=== PATIENT | male | born 1960 | race Caucasian/White ===

== ENCOUNTER 2023-10-05 10:42 | Observation (INO) | payer OTHER, SELFPAY ==
[2023-10-05] VITALS (12 sets, daily range): BP systolic 141–189; BP diastolic 83–98; PULSE 57–74; RESP 11–18; TEMP 36.3–36.8; O2SAT 96–99; BMI 37.1; BMI 35.4
--- NOTE | 2023-10-05 10:48 | CT_ITS ---
STUDY: CTA HEAD AND NECK WITH CONTRAST REASON FOR EXAM: Male, 63 years old. Neuro deficit, acute, stroke suspected RADIATION DOSAGE (If Supplied By Facility): CTDIvol = ( 20.21 ) mGy, DLP = ( 750.31 ) mGycm TECHNIQUE: CT angiography was performed with a multi-detector CT scanner. Data acquisition was obtained from the skull base through the vertex following intravenous administration of IV 100mL [id number]-[id number]. MIP images were reconstructed from the axial data set. Post-processing of the angiographic images was performed, with multiplanar reformation and 3D reconstruction. Individualized dose optimization techniques were used for this CT. COMPARISON: No relevant priors. FINDINGS: Normal bilateral petrous carotid arteries. There is calcified plaque formation of the right cavernous carotid artery, with a moderate stenosis (50-75%). There is calcified plaque formation of the left cavernous carotid artery, with a mild stenosis (less than 50%). Normal right A1 segments of the anterior cerebral artery. Normal left A1 segments of the anterior cerebral artery. Normal intact anterior communicating artery (ACOM). Normal bilateral A2 segments of the anterior cerebral arteries. Normal right M1 and M2 segments of the middle cerebral arteries, with a normal M1 bifurcation. Normal left M1 and M2 segments of the middle cerebral arteries, with a normal M1 bifurcation. Normal right posterior communicating artery (PCOM). Normal left posterior communicating artery (PCOM). Normal bilateral vertebral arteries. Normal basilar artery with a normal basilar bifurcation. The visualized bilateral superior cerebellar (SCA) arteries are normal. Normal bilateral P1, P2 and visualized P3 segments of the posterior cerebral arteries. There is no demonstrated aneurysm of the [place]. There is no demonstrated abnormality of the visualized brain. AORTIC ARCH: Normal visualized aortic arch. Normal origins of the brachiocephalic, left common carotid, and left subclavian arteries. RIGHT CAROTID ARTERIES: Normal right common carotid artery (CCA). Normal right common carotid bulb. There is severe atherosclerotic plaque formation of the origin of the right internal carotid artery with a near complete occlusion. Normal visualized cervical portion of the right internal carotid artery. Normal origin of the right external carotid artery (ECA). LEFT CAROTID ARTERIES: Normal left common carotid artery (CCA). Normal left common carotid bulb. There is extensive atherosclerotic plaque formation of the origin of the left internal carotid artery with an estimated stenosis of greater than 70%. Normal visualized cervical portion of the left internal carotid artery. Normal origin of the left external carotid artery (ECA). VERTEBRAL ARTERIES: Normal bilateral vertebral arteries. CT/STROKE CTA Head AND Neck W/Con IMPRESSION: Normal CTA Head and neck with contrast. N.B. : The above Results were Read Back by Eduin Mota MD to Dr Cas DO, and understanding confirmed on 10/05/2023 11:13:13 (ET). Electronically Signed: Eduin Mota MD at 11:14 EST ,
--- NOTE | 2023-10-05 10:48 | RAD_ITS ---
STUDY: X-RAY CHEST REASON FOR EXAM: Male, 63 years old. Neuro deficit, acute, stroke suspected TECHNIQUE: Single AP portable view of the chest. COMPARISON: None. FINDINGS: EKG electrodes are seen. The lungs are clear and expanded. There is no demonstrated pleural abnormality. Normal size heart. Normal mediastinum and albert. Normal visualized pulmonary arteries. Normal visualized aortic arch and descending thoracic aorta. There are degenerative changes of the visualized thoracic spine. Normal visualized ribs, clavicles, and shoulders. There is no demonstrated abnormality of the visualized soft tissue structures of the upper abdomen. RAD/Chest 1 View IMPRESSION: Normal x-ray examination of the chest. Electronically Signed: Eduin Mota MD at 11:59 EST ,
--- NOTE | 2023-10-05 10:48 | CT_ITS ---
STUDY: CT HEAD STROKE PROTOCOL W/O CONTRAST INJECTION REASON FOR EXAM: Male, 63 years old. Neuro deficit, acute, stroke suspected RADIATION DOSAGE (If Supplied By Facility): CTDIvol = ( 44.99 ) mGy, DLP = ( 829.85 ) mGycm TECHNIQUE: Transaxial CT imaging of the brain was performed without administration of intravenous contrast material. Individualized dose optimization techniques were used for this CT. COMPARISON: No relevant priors. FINDINGS: Normal soft tissue structures. Normal calvarium. Normal size ventricles and extra-axial spaces for the patient''s age. Normal white matter tracts of the cerebral hemispheres. Normal basal ganglia and thalami. Normal brainstem. Normal cerebellum. There is no intracranial hemorrhage. There are no findings of an acute ischemic infarction. Calcification of the cavernous portions of the internal carotid arteries bilaterally. Normal visualized paranasal sinuses. ASPECT score: 10 CT/STROKE Brain/Head without Cont IMPRESSION: Normal unenhanced CT scan of the brain. N.B. : The above Results were Read Back by Eduin Mota MD to Dr Cas DO, and understanding confirmed on 10/05/2023 11:06:32 (ET). Electronically Signed: Eduin Mota MD at 11:08 EST ,
--- NOTE | 2023-10-05 10:48 | EKG12_ITS ---
Test Reason : NEURO Blood Pressure : / mmHG Vent. Rate : 067 BPM Atrial Rate : 067 BPM P-R Int : 160 ms QRS Dur : 074 ms QT Int : 410 ms P-R-T Axes : 038 -14 005 degrees QTc Int : 433 ms Normal sinus rhythm Minimal voltage criteria for LVH, may be normal variant ( R in aVL ) Borderline ECG Confirmed by RAZA VALDES, MADELYN ([id number]), news copy editor BITA SWAN ([id number]) on 10/06/2023 9:41:57 AM Referred By: Confirmed By:MADELYN PERSON MD
--- NOTE | 2023-10-05 10:49 | EDS_ITS ---
HPI History of Present Illness Chief Complaint: Stroke Alert Detail of Chief Complaint: Patient presents to the emergency department with concern for stroke Informant: patient Narrative Narrative: Patient presents to the emergency department stating that this morning he woke up he could not use his left arm. Patient also had a line in his vision with his left eye. That line could be seen even when he closes eyes. Currently that his vision symptoms have resolved. He is now able to move his arm and the numbness and tingling has improved but still feels weak and still some has some subtle numbness and tingling. Denies difficulty with speech. Denies difficulty with weakness of his legs. Patient tells me he had a severe headache 2 weeks ago that caused him to miss 2 days of work and then headaches then resolved. Currently has just a mild headache. PFSH PFSH Medical History no medical history Allergy/AdvReac Type Severity Reaction Status Date / Time No Known Allergies Allergy Verified 10/05/23 10:50 Surgical History no surgical history Social History Smoking Status: Current every day smoker tobacco type: cigarettes ROS ROS ED Review of Systems ROS Unobtainable: other Constitutional Constitutional ED: Reports lethargy; Denies chills, fever(s), sweats or weight loss Eyes Eyes: Denies blurry vision, change in vision or diplopia ENT ENT ED: Denies rhinorrhea or sore throat Cardiovascular Cardiovascular: Reports chest pain and racing heartbeat; Denies orthopnea Respiratory/Chest Respiratory/Chest: Denies cough, dyspnea, dyspnea on exertion, orthopnea or sputum Gastrointestinal Gastrointestinal: Denies abdominal pain, diarrhea, nausea or vomiting Genitourinary Genitourinary ED: Denies dysuria, hematuria or urinary frequency Musculoskeletal Musculoskeletal: Denies arthralgias, back pain, myalgias or neck pain Integumentary Denies abscess, Abrasions or rash Neurologic Neurologic: Reports headache(s), paresthesias and weakness Psychiatric Psychiatric: Denies anxiety, depression or suicidal thoughts Endocrine Endocrinology: Denies polydipsia, polyphagia or polyuria Hematologic/Lymphatic Hematologic/Lymphatic: Denies easy bleeding, easy bruising or lymphadenopathy Allergic/Immunologic Allergic/Immunologic ED: Denies mouth swelling, tongue swelling or urticaria EXAM Physical Exam Const Vital Signs: 10/05/23 10:46 10/05/23 10:48 Pulse Rate 73 74 Respiratory Rate 16 18 Blood Pressure 189/90 H 189/90 H Blood Pressure Mean 123 123 Pulse Ox 97 98 Oxygen Delivery Method Room Air Room Air Positive well nourished and well developed General Appearance ED: well developed and NAD HEENT Reports TM's clear and moist mucous membranes normocephalic and atraumatic; Negative for trauma or tenderness Tympanic Membrane ED: Yes TM's clear Eyes PERRL and EOMs intact bilaterally General Eye ED: Negative for pale conjunctiva or scleral icterus Neck no lymphadenopathy, supple and no JVD General: Negative for tenderness Chest Wall inspection of chest normal and palpation of chest normal Chest: Negative for tenderness Resp normal respiratory effort and clear to auscultation bilaterally Effort and Inspection: Negative for respiratory distress or pain with movement Auscultation: Negative for rhonchi, wheezes or diminished lung sounds Cardio regular rate, regular rhythm, S1 normal heart sound, S2 normal heart sound and no murmurs Peripheral Pulses: pulses 2+ throughout GI normal to inspection, nondistended, normoactive bowel sounds, soft to palpation, non-tender, non-distended and no masses Back/Spine no CVA tenderness and no thoracic nor lumbar tenderness Extremity normal to inspection General Extremety ED: Negative for edema General Extremity: Negative for edema Neuro oriented x3, CN's II-XII intact bilaterally, no sensory deficits noted and gait normal Neuro Narrative: Patient with some subtle weakness of the left arm on exam with decree sensation to the left arm compared to the right for an NIH stroke scale of 2. No facial droop. Sensorium / Orientation: awake, alert, oriented to person, oriented to place and oriented to time Motor Exam: strength 5/5 throughout and strength abnormal Psych mental status grossly normal Skin no rashes or lesions noted and no wounds MDM MDM MDM Narrative Medical decision making narrative: Patient presents with concern for stroke. Last known well was last evening at 9 PM and patient woke up with symptoms this morning around 5 AM. Patient will not be a thrombolytic candidate. Stroke team was called on arrival to expedite diagnostics and treatment. Will obtain CT of the brain as well as CTA head and neck to rule out large vessel occlusion versus intracranial hemorrhage. EKG obtained on arrival shows sinus rhythm with a rate of 67 bpm with minimal criteria for LVH. Patient had a CBC with differential that showed a white count 7.4 with hemoglobin 18 and platelet count of 254. Chemistries unremarkable. Glucose was 101. CT scan of the brain without contrast was unremarkable. CTA of head and neck obtained and per radiologist showed near total occlusion of the right internal carotid artery and greater than 70% stenosis on the left. I did discuss case with Dr. Romero who is the vascular surgeon on-call who recommended admission admitting patient for continued stroke workup and he will evaluate patient for potential carotid endarterectomy. Patient will be given aspirin. Lab Data Attestation: I reviewed the patient's lab results. Labs: Laboratory Results - last 24 hr 10/05/23 10/05/23 10:45 10:47 WBC 7.4 RBC 6.10 Hgb 18.1 H* Hct 54.3 H MCV 89.0 MCH 29.7 MCHC 33.3 RDW Std Deviation 42.7 RDW Coeff of Francoise 13.2 Plt Count 254 MPV 9.0 Immature Gran % (Auto) 0.300 Neut % (Auto) 69.8 Lymph % (Auto) 22.7 Lares % (Auto) 6.1 Eos % (Auto) 0.7 Baso % (Auto) 0.4 Absolute Neuts (auto) 5.1 Absolute Lymphs (auto) 1.67 Nucleated RBC % 0 Diff Path Review May foll PT 12.2 INR 0.9 APTT 24.8 Sodium 139 Potassium 3.7 Chloride 108 H Carbon Dioxide 28.0 Anion Gap 3 L BUN 6 L Creatinine 0.80 Estim Creat Clear Calc 122.95 Est GFR (MDRD) Af Amer 125 Est GFR (MDRD) Non-Af 104 BUN/Creatinine Ratio 7.5 L Glucose 111 H Calcium 9.6 Troponin I High Sens 9 POC Glucose 101 EKG Initial EKG: Attestation: I personally reviewed and interpreted this EKG as follows: Comments: Sinus rhythm with rate of 67 bpm with LVH criteria. Discharge Plan Triage Chief Complaint: Stroke Alert ED Provider: Qi Valadez Dx/Rx/DC Orders Clinical Impression: Carotid occlusion, right, Hypertension, Stroke Primary Care Provider: Bean West Referrals: Care Physician,No Primary [Non-Staff] - Disposition Disposition: Acute Care Hospital [facility]
[2023-10-05 10:56] LABS: Absolute Lymphocyte Count 1.67 X10^3/uL (0.83-4.51); Absolute Neutrophil Count 5.1 X10^3/uL (2.0-7.7); Basophil# 0.03 X10^3/uL; Basophil% 0.4 % (0-1); Eosinophil# 0.05 X10^3/uL; Eosinophils% 0.7 % (0-5); Hematocrit 54.3 % (40-54); Lymphocyte # 1.67 X10^3/ul (0.83-4.51); Lymphocyte % 22.7 % (19-41); Mean Corp Hgb Conc 33.3 g/dL (32-36); Mean Corpuscular Hgb 29.7 pg (27.0-32.0); Monocyte# 0.45 X10^3/uL; Monocyte% 6.1 % (0-10); NRBC Flagged by Analyzer 0 % (0-5); Neutrophil # 5.13 X10^3/uL (2.7-7.7); Neutrophil % 69.8 % (47-70); Platelet Count 254 K/mm3 (150-450); RBC Distribution Width CV 13.2 % (11.6-14.6); RBC Distribution Width SD 42.7 fl (35.1-43.9); White Blood Count 7.4 K/mm3 (4.4-11.0)
[2023-10-05 11:01] LABS: Differential Indicated SCAN CRITERIA MET; Hemoglobin 18.1 g/dL (13.0-16.5)
[2023-10-05 11:06] LABS: International Normalized Ratio 0.9; Partial Thromboplast Time 24.8 Seconds (24.1-36.2); Prothrombin Time (Protime)PT. 12.2 SECONDS (11.7-14.9)
[2023-10-05 11:07] LABS: Bedside Glucose 101 mg/dL (74-106)
[2023-10-05] MEDS: 0.9% Normal Saline (1000mL) 1,000 ML 100 ML IV (11:09)
[2023-10-05 11:15] LABS: Anion Gap 3 (5-15); BUN 6 mg/dL (7-18); BUN/Creat Ratio 7.5 RATIO (10-20); Calcium,Total 9.6 mg/dL (8.5-10.1); Chloride 108 mmol/L (98-107); EST Glomerular Filtration Rate 104 mL/min (>60); Est Glom Filt Rate - Afr Amer 125 mL/min (>60); Estimated Creatinine Clearance 122.95 ml/min; Glucose 111 mg/dL (74-106); Potassium 3.7 mmol/L (3.5-5.1); Sodium Level 139 mmol/L (136-145); Troponin-I HS 9 pg/mL (3.0-78.0)
[2023-10-05] MEDS: Aspirin 81 MG TAB.CHEW PO (11:30)
--- NOTE | 2023-10-05 11:33 | CHAPLAIN ---
Type of Pastoral Visit ___ Initial Visit ___ Follow-up Visit ___ On-call Visit ___ General Patient Visit ___ Spiritual Assessment ___ Family Conference ___ Bereavement _x__ Rapid Response ___ Code Blue ___ Other (describe below) Pastoral Care Referral From ___ Patient ___ Family ___ Nurse ___ Physician ___ Locomotive Crane Operator Helper ___ Head Control Clerk _x__ Other (describe below) Sacrament/Intervention ___ Active listening ___ Anointing ___ Adventism ___ Bereavement ___ Communion ___ Sarah exploration ___ ___ Life review ___ Prayer ___ Reconciliation ___ Sacrament of Sick _x__ Supportive presence ___ Wedding ___ Other (describe below) Pastoral Comments responded to stroke alert and found that patient was being taken to CT; spouse is in the room and she was offered support; spouse did welcome the offer for coffee; spouse is trying to contact other family members and states she is familiar to hospital procedures and believes that she is fine at this time; offer of future support given as needed
--- NOTE | 2023-10-05 12:58 | MRI_ITS ---
We are attempting to reach an attending provider to discuss findings. An addendum with communication details will be sent when the communication is complete. EXAM: MR HEAD WITHOUT INTRAVENOUS CONTRAST CLINICAL INDICATION: CVA TECHNIQUE: Multiplanar and multisequence MR images of the brain were obtained without intravenous contrast. COMPARISON: CT head without contrast and CTA head and neck with contrast 10/05/2023. FINDINGS: BRAIN AND EXTRA-AXIAL SPACES: Small diffusion restriction in the right parietal lobe cortex is faintly visible on the T2 FLAIR sequence (series 4, image 24; series 6, image 21). No intra- or extra-axial hemorrhage. No evidence of acute infarct. No intracranial mass or mass effect. There is preservation of the miles/white matter interface. Posterior fossa structures are unremarkable. Ventricles are appropriate for age. No hydrocephalus. Basal cisterns are patent. SELLA: Unremarkable. Normal sella turcica, pituitary gland, infundibular stalk, optic chiasm and hypothalamus. AUDITORY SYSTEM: Unremarkable. The internal auditory canals are patent. BONES/JOINTS: See above. SINUSES: Unremarkable as visualized. Clear. MASTOID AIR CELLS: Unremarkable as visualized. Clear. ORBITS: Unremarkable as visualized. Both globes, extraocular muscles, optic nerves and retrobulbar fat appear unremarkable. VASCULATURE: Unremarkable as visualized. Normal flow voids in the major intracranial circulation. MRI/Brain without Contrast IMPRESSION: Acute lacunar ischemic infarct in the right posterior parietal lobe cortex. Electronically Signed: Shane Park MD at 15:03 EST ,
--- NOTE | 2023-10-05 12:58 | CDU_ITS ---
Reason For Study: Carotid Stenosis Rt. Velocities/BP Lt. Velocities/BP Prox CCA 95/17 cm/sec. Prox CCA 87/19 cm/sec. Mid CCA 81/16 cm/sec. Mid CCA 90/24 cm/sec. Dist CCA 56/15 cm/sec. Dist CCA 84/23 cm/sec. Prox ICA 145/50 cm/sec. Prox ICA 118/46 cm/sec. Mid ICA 91/23 cm/sec. Mid ICA 156/47 cm/sec. Dist ICA 51/16 cm/sec. Dist ICA 70/20 cm/sec. Rt. ICA/CCA = 1.79. Lt. ICA/CCA = 1.73. Prox ECA 257/16 cm/sec. Prox ECA 257/37 cm/sec. Rt. Vert. 58/14 cm/sec. Lt. Vert. 45/15 cm/sec. Right Extracranial There is heterogeneous, irregular atherosclerotic plaque noted in the right common carotid artery. There is heterogeneous, irregular atherosclerotic plaque noted in the right internal carotid artery. There is heterogeneous, irregular atherosclerotic plaque noted in the right external carotid artery. Antegrade flow is noted in the right vertebral artery. Left Extracranial There is heterogeneous, irregular atherosclerotic plaque noted in the left common carotid artery. There is heterogeneous, irregular atherosclerotic plaque noted in the left internal carotid artery. There is heterogeneous, irregular atherosclerotic plaque noted in the left external carotid artery. Antegrade flow is noted in the left vertebral artery. Procedure Carotid Duplex 51603. This is a Carotid Duplex examination using B-mode, color flow and specral Doppler. Exam performed portable in patient room. VL/Carotid Duplex Ultrasound Interpretation Summary Moderate (50-69%) stenosis right extracranial internal carotid. Moderate (50-69%) stenosis left extracranial internal carotid. Patent and antegrade vertebrals bilaterally. Ordering Physician: Ramon Bae Referring Physician: Bean Wset Performed By: Adilia Byers, RDCS, RVT
--- NOTE | 2023-10-05 12:58 | ECHOCS_ITS ---
Reason For Study: TIA/CVA Procedure This was a 2D Doppler, Color Flow transthoracic echocardiogram. The study was technically difficult. Exam performed portable in patient room. Left Ventricle Normal LV size. Moderate concentric left ventricular hypertrophy. Left ventricular systolic function is normal. The left ventricular ejection fraction is 50 %. Stage 1 diastolic dysfunction. No regional wall motion abnormalities noted. Right Ventricle Normal RV size. Normal systolic function. Atria The left atrium is mildly enlarged. Normal right atrium. Bubble contrast study negative for right to left interatrial shunt. Mitral Valve Normal mitral valve. Trivial eccentric mitral valve insufficiency. Tricuspid Valve Normal tricuspid valve. Pulmonic Valve Normal pulmonic valve. Great Vessels Normal aortic root. The pulmonary artery is normal size. Normal inferior vena cava. Inferior vena cava collapse with respiration. Pericardium/Pleural No pericardial effusion. Medication Performed a rapid injection of agitated mix of 9 cc saline and 1cc air to assess for atrial septal defect. Diluted definity 3ml given slow IV push to enhance endocardial definition. MMode/2D Measurements & Calculations LVIDd: 4.6 cm IVSd: 1.4 cm Ao root diam: 3.1 cm LVIDs: 3.5 cm LVPWd: 1.5 cm RVDd: 3.9 cm FS: 24.4 % LAV(MOD-bp): 55.2 ml LVAd ap4: 37.4 cm2 SV(MOD-sp4): 63.7 ml LAV(MOD-bp) Indexed: 23.7 ml/m2 LVLd ap4: 8.3 cm LAV(MOD-sp2): 45.5 ml EDV(MOD-sp4): 138.4 ml LAV(MOD-sp4): 52.1 ml EDV(sp4-el): 142.8 ml LVAs ap4: 26.2 cm2 LVLs ap4: 8.1 cm ESV(MOD-sp4): 74.7 ml ESV(sp4-el): 71.9 ml EF(MOD-sp4): 46.0 % EF(sp4-el): 49.7 % SV(sp4-el): 71.0 ml LA A4 area: 20.6 cm2 LA dimension(2D): 3.8 cm RA A4 area: 15.5 cm2 Time Measurements MV dec time: 0.21 sec Doppler Measurements & Calculations MV E max colby: 71.9 cm/sec Lat Peak E' Colby: 9.2 cm/sec Med Peak E' Colby: 7.6 cm/sec MV A max colby: 79.6 cm/sec E/E' lat: 7.8 E/E' med: 9.4 MV E/A: 0.90 Ao V2 max: 147.2 cm/sec LV V1 max: 99.5 cm/sec MV dec slope: 341.8 cm/sec2 Ao max P.7 mmHg LV V1 max P.0 mmHg Ao V2 mean: 98.5 cm/sec LV V1 mean P.2 mmHg Ao mean P.4 mmHg LV V1 mean: 70.6 cm/sec Ao V2 VTI: 32.3 cm LV V1 VTI: 21.8 cm AV (velocity ratio): 0.68 PA V2 max: 93.3 cm/sec PA V2 mean: 64.9 cm/sec ECHO/Echo Complete W/ Contrast Interpretation Summary Normal LV size. Moderate concentric left ventricular hypertrophy. Left ventricular systolic function is normal. The left ventricular ejection fraction is 50 %. Stage 1 diastolic dysfunction. Bubble contrast study negative for right to left interatrial shunt. Ordering Physician: Ramon Bae Referring Physician: Bean West Performed By: Miriam Croft RDCS
--- NOTE | 2023-10-05 15:43 | PCM.HP.STD ---
HPI - General General Date of Admission: 10/05/23 HPI Narrative LAMAR HERMOSILLO, is a 63 M who presents to the hospital with signs and symptoms of a stroke. Last night he went to bed around 9 PM and was normal and then this morning he woke up at around 5 AM and he could not use his left arm he also had some changes in vision in his left eye. So he presented to the hospital. CTA of the head and neck showed fairly significant stenoses bilaterally and the case was discussed with vascular surgery who agreed to see him in the hospital. From the time of presenting to the ER to my evaluation, his symptoms had completely resolved. He denies any weakness and no longer has any numbness or tingling in his extremities. No blurriness in his vision and no aphasia. REPLACED BY [facility] Medical History (Updated 10/05/23 @ 15:[address] Ramon Bae MD) Dupuytren's contracture of both hands Medical History no medical history Allergy/AdvReac Type Severity Reaction Status Date / Time No Known Allergies Allergy Verified 10/05/23 10:50 Family History (Updated 10/05/23 @ 16:[address] Ramon Bae MD) Other Heart disease Family History no significant family his Surgical History (Updated 10/05/23 @ 16:[address] Ramon Bae MD) Status post Dupuytren's fasciectomy Surgical History no surgical history Social History Smoking Status: Heavy Smoker (>10/day) ROS Constitutional Constitutional: Denies chills, fatigue, fever(s) or malaise Eyes Eyes: Denies blurry vision ENT HEENT: Denies headache(s) or nasal discharge Cardiovascular Cardiovascular: Denies chest pain, dyspnea on exertion or syncope Respiratory/Chest Respiratory/Chest: Denies cough, shortness of breath at rest or shortness of breath with exertion Gastrointestinal Gastrointestinal: Denies constipation, diarrhea, nausea or vomiting Genitourinary Genitourinary: Denies dysuria Neurologic Neurologic: Reports focal weakness; Denies numbness or tremor(s) Psychiatric Psychiatric: Denies anxiety or depression Vital Signs Vital Signs Vital Signs: 10/05/23 10:46 10/05/23 10:48 10/05/23 11:18 Temperature Temperature Source Pulse Rate 73 74 66 Respiratory Rate 16 18 16 Blood Pressure 189/90 H 189/90 H 160/83 H Blood Pressure Mean 123 123 108 Blood Pressure Source Blood Pressure Position Blood Pressure Location Pulse Ox 97 98 98 Oxygen Delivery Method Room Air Room Air Room Air 10/05/23 11:30 10/05/23 11:54 10/05/23 12:08 Temperature Temperature Source Pulse Rate 62 63 60 Respiratory Rate 14 14 16 Blood Pressure 149/89 H 149/89 H 156/83 H Blood Pressure Mean 109 109 107 Blood Pressure Source Blood Pressure Position Blood Pressure Location Pulse Ox 98 98 98 Oxygen Delivery Method Room Air Room Air Room Air 10/05/23 12:00 10/05/23 12:09 10/05/23 12:30 Temperature 98.3 F 97.6 F L Temperature Source Oral Pulse Rate 61 62 62 Respiratory Rate 11 L 11 L 16 Blood Pressure 156/83 H 156/83 H 142/85 H Blood Pressure Mean 107 107 104 Blood Pressure Source Monitor Blood Pressure Position Semi-Fowlers Blood Pressure Location Left Arm Pulse Ox 97 99 99 Oxygen Delivery Method Room Air Room Air Weight Weight: 254 lb 6.615 oz Body Mass Index (BMI) 35.4 Physical Exam Narrative General: Alert, Oriented x3, Cooperative, No apparent distress HEENT: Atraumatic, PERRLA, EOMI, Normocephalic Oral: Moist Mucosa Neck: Supple, No JVD Lungs: Diminished, Normal air movement, No rhonchi, No wheeze, No rales Cardiovascular: Regular rate, Regular Rhythm, Normal S1, Normal S2, No murmurs Abdomen: Soft, Non Tender, Non-Distended, No Hepato-splenomegaly Extremities: No edema, Capillary Refill Less than 3 Seconds Skin: No rashes, No breakdown Musculoskeletal: No Tenderness to Palpation of Joints or Extremities Neurological: No focal neurological deficits, Motor Exam 5/5 strength throughout, Sensory exam intact to light touch and pain Psych/Mental Status: Normal Affect, Appropriate Results Lab / Micro Data 10/05/23 10:45 10/05/23 10:45 Labs: Laboratory Results - last 24 hr 10/05/23 10:45: WBC 7.4, RBC 6.10, Hgb 18.1 H*, Hct 54.3 H, MCV 89.0, MCH 29.7, MCHC 33.3, RDW Std Deviation 42.7, RDW Coeff of Francoise 13.2, Plt Count 254, MPV 9.0, Immature Gran % (Auto) 0.300, Neut % (Auto) 69.8, Lymph % (Auto) 22.7, [place] % (Auto) 6.1, Eos % (Auto) 0.7, Baso % (Auto) 0.4, Absolute Neuts (auto) 5.1, Absolute Lymphs (auto) 1.67, Nucleated RBC % 0, Diff Path Review December, PT 12.2, INR 0.9, APTT 24.8, Sodium 139, Potassium 3.7, Chloride 108 H, Carbon Dioxide 28.0, Anion Gap 3 L, BUN 6 L, Creatinine 0.80, Estim Creat Clear Calc 122.95, Est GFR (MDRD) Af Amer 125, Est GFR (MDRD) Non-Af 104, BUN/Creatinine Ratio 7.5 L, Glucose 111 H, Calcium 9.6, Troponin I High Sens 9 10/05/23 10:47: POC Glucose 101 Imaging Radiology Impression Brain CT 10/05/23 10:48 IMPRESSION: Normal unenhanced CT scan of the brain. N.B. : The above Results were Read Back by Eduin Mota MD to Dr Cas DO, and understanding confirmed on 10/05/2023 11:06:32 (ET). Electronically Signed: Eduin Mota MD at 11:08 EST Reading Location ID and State: [facility] / [place] , Service support , Chest X-Ray 10/05/23 10:48 IMPRESSION: Normal x-ray examination of the chest. Electronically Signed: Eduin Mota MD at 11:59 EST , Head/Neck CTA 10/05/23 10:48 IMPRESSION: Normal CTA Head and neck with contrast. N.B. : The above Results were Read Back by Eduin Mota MD to Dr Cas DO, and understanding confirmed on 10/05/2023 11:13:13 (ET). Electronically Signed: Eduin Mota MD at 11:14 EST , Brain MRI 10/05/23 12:58 IMPRESSION: Acute lacunar ischemic infarct in the right posterior parietal lobe cortex. Electronically Signed: Shane Park MD at 15:03 EST , ADDENDUM: 10/05/23 1527 IMPRESSION: Acute lacunar ischemic infarct in the right posterior parietal lobe cortex. N.B. : The above Results were Read Back by Shane Park MD to Ramon Bae MD, and understanding confirmed on 10/05/2023 15:20:37 (ET). Electronically Signed: Shane Park MD at 15:03 EST , Assessment & Plan Assessment/Plan (1) Right-sided lacunar infarction: PLAN: Plan 1. Right-sided lacunar infarct in the right parietal lobe/morbid obesity/tobacco abuse ? Will consult neurology, and will continue with the stroke protocol ? Continue with statin and aspirin ? Continue with telemetry for another 24 hours ? Symptoms have completely resolved ? Discussed tobacco cessation and the necessity of the to prevent future strokes DVT: SCDs 75 minutes was spent on direct patient care, including documentation as well as chart review and collaboration with colleagues Charges/Coding Visit Charges Inpatient E&M: 56895 Init Hosp L3
[2023-10-05] MEDS: Acetaminophen 325 MG Tablet 650 MG PO (17:43)
[2023-10-05] MEDS: Atorvastatin Calcium 80 MG Tablet PO (20:53)
[2023-10-06] VITALS (7 sets, daily range): BP systolic 123–165; BP diastolic 72–83; PULSE 62–64; RESP 14–18; TEMP 36.4–36.6; O2SAT 95–97; BMI 35.4
[2023-10-06] MEDS: Acetaminophen 325 MG Tablet 650 MG PO (07:06)
[2023-10-06 07:11] LABS: Absolute Lymphocyte Count 1.49 X10^3/uL (0.83-4.51); Absolute Neutrophil Count 3.1 X10^3/uL (2.0-7.7); Basophil# 0.02 X10^3/uL; Basophil% 0.4 % (0-1); Eosinophil# 0.05 X10^3/uL; Hematocrit 45.4 % (40-54); Hemoglobin 15.6 g/dL (13.0-16.5); Lymphocyte # 1.49 X10^3/ul (0.83-4.51); Lymphocyte % 29.4 % (19-41); Mean Corp Hgb Conc 34.4 g/dL (32-36); Mean Corpuscular Hgb 30.4 pg (27.0-32.0); Mean Corpuscular Volume 88.5 fL (80-94); Monocyte# 0.38 X10^3/uL; Monocyte% 7.5 % (0-10); NRBC Flagged by Analyzer 0 % (0-5); Neutrophil # 3.12 X10^3/uL (2.7-7.7); Neutrophil % 61.5 % (47-70); Platelet Count 207 K/mm3 (150-450); RBC Distribution Width CV 13.1 % (11.6-14.6); RBC Distribution Width SD 43.1 fl (35.1-43.9); Red Blood Count 5.13 M/mm3 (4.6-6.2); White Blood Count 5.1 K/mm3 (4.4-11.0)
[2023-10-06 07:34] LABS: Anion Gap 3 (5-15); BUN 5 mg/dL (7-18); BUN/Creat Ratio 7.2 RATIO (10-20); Calcium,Total 8.8 mg/dL (8.5-10.1); Chloride 111 mmol/L (98-107); Cholesterol 188 mg/dL (200); Creatinine, Serum 0.69 mg/dL (0.70-1.30); EST Glomerular Filtration Rate 123 mL/min (>60); Est Glom Filt Rate - Afr Amer 148 mL/min (>60); Estimated Creatinine Clearance 143.41 ml/min; Glucose 115 mg/dL (74-106); High Density Lipoprotein 45 mg/dL; Potassium 3.6 mmol/L (3.5-5.1); Sodium Level 140 mmol/L (136-145); Triglycerides 113 mg/dL; Very Low Density Lipoprotein 23 mg/dL (5-40)
[2023-10-06] MEDS: Aspirin 81 MG TAB.CHEW PO (09:44)
--- NOTE | 2023-10-06 11:11 | EX.PCM.CON.S ---
Assessment & Plan Assessment/Plan (1) Stenosis of right internal carotid artery with cerebral infarction: PLAN: -CTA images reviewed, 51% stenosis by NASCET, 71% by ECST, no significant calcification -discussed options for medical tx vs surgical intervention -in patients who are not on any medical therapy and with moderate stenosis it would be reasonable to treat with antiplatelet/statin -risks/benefits of surgery discussed -would prefer to pursue -stress test -ok to discharge on asa/plavix/statin -will schedule as outpatient HPI Consult Data Date of Consult: 10/06/23 HPI Narrative HPI Narrative: LAMAR HERMOSILLO, is a 63 M who presents with left arm numbness/weakness and visual disturbances beginning when he awoke 10/05. He presented to the ED and given last known well the night before he was not candidate for lytics. CTA revealed right ICA stenosis and MRI right parietal lobe infarct. Prior to admission he was not on any antiplatelet agents or statin. No prior similar events. Symptoms have resolved since admission. Current smoker, plans to quit starting now. No neck surgery/limitation to ROM. [facility] Medical History Dupuytren's contracture of both hands Medical History no medical history Allergy/AdvReac Type Severity Reaction Status Date / Time No Known Allergies Allergy Verified 10/05/23 10:50 Family History Other Heart disease Family History no significant family his Surgical History Status post Dupuytren's fasciectomy Surgical History no surgical history Social History Smoking Status: Current every day smoker tobacco type: cigarettes ROS Constitutional Constitutional: Denies chills, fever(s), frequent falls, lethargy or weakness Eyes Eyes: Denies blind spots, change in vision or loss of vision ENT HEENT: Denies bleeding gums, hoarseness or sore throat Cardiovascular Cardiovascular: Denies abdominal pain, bluish discoloration of hand/feet, chest pain with activity, claudication, cold extremities, cyanosis, dyspnea on exertion, erythema on extremities, irregular heart rhythm, leg edema, leg ulcers, numbness in extremities or weakness in extremities Respiratory/Chest Respiratory/Chest: Denies cough, excessive phlegm production, shortness of breath at rest, shortness of breath with exertion or wheezing Gastrointestinal Gastrointestinal: Denies anorexia, change in stool character, constipation, diarrhea, melena or rectal bleeding Genitourinary Genitourinary: Denies dysuria or hematuria Musculoskeletal Musculoskeletal: Denies abnormal gait Integumentary Integumentary: Reports other Details: ; Denies erythema, non-healing lesions or wounds Neurologic Neurologic: Denies abnormal speech, focal weakness, headache(s), loss of vision, numbness, paresthesias or sensory deficit Hematologic/Lymphatic Hematologic/Lymphatic: Denies easy bleeding, easy bruising or lymphadenopathy Physical Exam Const alert, oriented x3, no apparent distress and healthy appearing General Appearance: cooperative; Negative for combative or lethargic Orientation / Consciousness: awake Exam Limitations: no limitations HEENT Head and Scalp: normocephalic and atraumatic Eyes EOMs intact bilaterally General Eye: normal appearance of both eyes Neck full ROM, no lymphadenopathy and thyroid normal General: trachea midline; Negative for lymphadenopathy or tenderness Thyroid: thyroid normal Lymph Lymphatic: Negative for no lymphadenopathy noted Resp normal respiratory effort and no use of accessory muscles Effort and Inspection: Negative for labored, stridor or audible wheezes Cardio regular rate and regular rhythm Peripheral Pulses: brachial pulses present, radial pulses present, popliteal pulses present, posterior tibial pulses present and dorsalis pedis pulses present Back/Spine Cervical Spine: cervical ROM normal Extremity full ROM, normal capillary refill and no clubbing, cyanosis or edema Skin no rashes or lesions noted and no wounds Neuro oriented x3, CN's II-XII intact bilaterally, no focal motor deficits and no sensory deficits noted Psych thought process normal, cooperative, affect normal, speech normal and activity/motor behavior normal Lab / Micro Data 10/06/23 06:35 10/06/23 06:35 Labs: Laboratory Results - last 24 hr 10/05/23 10:45: Diff Path Review December, Sodium 139, Potassium 3.7, Chloride 108 H, Carbon Dioxide 28.0, Anion Gap 3 L, BUN 6 L, Creatinine 0.80, Estim Creat Clear Calc 122.95, Est GFR (MDRD) Af Amer 125, Est GFR (MDRD) Non-Af 104, BUN/Creatinine Ratio 7.5 L, Glucose 111 H, Calcium 9.6, Troponin I High Sens 9 10/06/23 06:35: WBC 5.1, RBC 5.13, Hgb 15.6, Hct 45.4, MCV 88.5, MCH 30.4, MCHC 34.4, RDW Std Deviation 43.1, RDW Coeff of Francoise 13.1, Plt Count 207, MPV 9.0, Immature Gran % (Auto) 0.200, Neut % (Auto) 61.5, Lymph % (Auto) 29.4, [place] % (Auto) 7.5, Eos % (Auto) 1.0, Baso % (Auto) 0.4, Absolute Neuts (auto) 3.1, Absolute Lymphs (auto) 1.49, Nucleated RBC % 0, Sodium 140, Potassium 3.6, Chloride 111 H, Carbon Dioxide 26.0, Anion Gap 3 L, BUN 5 L, Creatinine 0.69 L, Estim Creat Clear Calc 143.41, Est GFR (MDRD) Af Amer 148, Est GFR (MDRD) Non-Af 123, BUN/Creatinine Ratio 7.2 L, Glucose 115 H, Calcium 8.8, Triglycerides 113, Cholesterol 188, LDL Cholesterol 120, VLDL Cholesterol 23, HDL Cholesterol 45 Imaging Radiology Impression Brain CT 10/05/23 10:48 IMPRESSION: Normal unenhanced CT scan of the brain. N.B. : The above Results were Read Back by Eduin Mota MD to Dr Cas DO, and understanding confirmed on 10/05/2023 11:06:32 (ET). Electronically Signed: Eduin Mota MD at 11:08 EST , Chest X-Ray 10/05/23 10:48 IMPRESSION: Normal x-ray examination of the chest. Electronically Signed: Eduin Mota MD at 11:59 EST , Head/Neck CTA 10/05/23 10:48 IMPRESSION: Normal CTA Head and neck with contrast. N.B. : The above Results were Read Back by Eduin Mota MD to Dr Cas DO, and understanding confirmed on 10/05/2023 11:13:13 (ET). Electronically Signed: Eduin Mota MD at 11:14 EST , Brain MRI 10/05/23 12:58 IMPRESSION: Acute lacunar ischemic infarct in the right posterior parietal lobe cortex. Electronically Signed: Shane Park MD at 15:03 EST , ADDENDUM: 10/05/23 1527 IMPRESSION: Acute lacunar ischemic infarct in the right posterior parietal lobe cortex. N.B. : The above Results were Read Back by Shane Park MD to Ramon Bae MD, and understanding confirmed on 10/05/2023 15:20:37 (ET). Electronically Signed: Shane Park MD at 15:03 EST , Echocardiogram 10/05/23 12:58 Interpretation Summary Normal LV size. Moderate concentric left ventricular hypertrophy. Left ventricular systolic function is normal. The left ventricular ejection fraction is 50 %. Stage 1 diastolic dysfunction. Bubble contrast study negative for right to left interatrial shunt. Ordering Physician: Ramon Bae Referring Physician: Bean West Performed By: Miriam Croft, [facility] Charges/Coding Visit Charges Inpatient E&M: 47709 Init Hosp L3
[2023-10-06] MEDS: Clopidogrel Bisulfate 75 MG Tablet PO (11:51)
--- NOTE | 2023-10-06 12:09 | CASEMGMT ---
SW completed a PHQ 9 with patient as he had a Stroke. Patient scored a 2 which indicates minimal depression. Patient denied any need for counseling resources. Lachelle SAGE
--- NOTE | 2023-10-06 12:39 | DCINST_ITS ---
Discharge Instructions Diet Discharge Diet: Low fat / Low cholesterol Activity Discharge Activity: Return to Normal Activity Dressing / Incision Call your doctor if you observe: Fever of 101 or Higher, Shortness of breath, Dizziness, Fainting spells, Swelling in the ankles, Chest pain and Increased palpitations (irregular heartbeat) Follow Up Care Test Results: Test results from this visit will be discussed in further detail at your follow- up appointment, if applicable. Discharge Plan Admission Admit Date/Time: 10/05/23 11:30 Attending Provider: Ramon Bae Primary Care Provider: Bean West Consulting Providers: Tamir Romero; Giovani Sawyer; Will Knutson; Shayla Menjivar; Anu Ernandez; Ashlee Tang; Ronald Ayala; Ariane Jauregui; Jamar Montalvo; Joe Bartlett; Gwen Gutierrez; Johnathan Vasquez; Charis Gutierrez; Paxton Ramírez; Issa Clinton; Natanael Malik; Adelina Kurtz; Keenan Carpenter; Shobha Perrin; Clara Street Discharge Orders/Prescriptions Prescriptions: New atorvastatin 80 mg Tablet 80 mg PO QHS 30 Days Qty: 30 0RF clopidogrel 75 mg Tablet 75 mg PO DAILY 30 Days Qty: 30 0RF aspirin 81 mg Tablet,Chewable 81 mg PO BREAKFAST 30 Days Qty: 30 0RF Referrals / Follow Up: Tamir Romero MD [Med Staff - Active Staff] - Within 2 Weeks Bean West DO [Primary Care Provider] - Within 1 Week Care Physician,No Primary [Non-Staff] - Disposition Disposition (needs filled in before D/C Order can be placed): Home, Self Care
--- NOTE | 2023-10-06 13:05 | CON.PCM.NE_ITS ---
Assessment and Plan: Stroke Assessment/Plan LAMAR HERMOSILLO is a 63 M with a history of symptomatic carotid stenosis. - Agree with vascular evaluation for intervention - DAPT with ASA + Plavix. Duration of therapy dependent on the above i ntervention - High intensity statin - no further neurovascular work up required - Recommendations discussed with primary team HPI Consult Data Date of Consult: 10/06/23 HPI Narrative HPI Narrative: LAMAR HERMOSILLO, is a 63 M who presents with transient weakness that has since resolved. Work up has revealed symptomatic carotid stenosis PFSH Medical History Dupuytren's contracture of both hands Medical History no medical history Home Medications aspirin 81 mg chewable tablet 81 mg PO BREAKFAST 30 days #30 tabs 10/06/23 [Rx Last Taken Unknown] atorvastatin 80 mg tablet 80 mg PO QHS 30 days #30 tabs 10/06/23 [Rx Last Taken Unknown] clopidogrel 75 mg tablet 75 mg PO DAILY 30 days #30 tabs 10/06/23 [Rx Last Taken Unknown] Allergy/AdvReac Type Severity Reaction Status Date / Time No Known Allergies Allergy Verified 10/05/23 10:50 Family History Other Heart disease Family History no significant family his Surgical History Status post Dupuytren's fasciectomy Surgical History no surgical history Social History Smoking Status: Heavy Smoker (>10/day) Vital Signs Vital Signs Vital Signs: 10/05/23 16:30 10/05/23 15:00 10/05/23 17:39 Temperature 98.0 F Temperature Source Oral Pulse Rate 63 Pulse Strength Respiratory Rate 16 Respiratory Effort Normal Non-Labored Respiratory Depth Normal Respiratory Pattern Normal Blood Pressure 150/84 H Blood Pressure Mean 106 Blood Pressure Source Monitor Blood Pressure Position Semi-Fowlers Blood Pressure Location Left Arm Pulse Ox 98 96 Oxygen Delivery Method Room Air Room Air Room Air 10/05/23 20:39 10/05/23 20:20 10/05/23 22:00 Temperature 97.4 F L Temperature Source Oral Pulse Rate 57 L Pulse Strength Normal (2+) Respiratory Rate 16 Respiratory Effort Normal Non-Labored Respiratory Depth Normal Respiratory Pattern Normal Blood Pressure 141/98 H Blood Pressure Mean 112 Blood Pressure Source Monitor Blood Pressure Position Semi-Fowlers Blood Pressure Location Right Arm Pulse Ox 99 Oxygen Delivery Method Room Air Room Air 10/06/23 00:30 10/06/23 04:28 10/06/23 04:32 Temperature 97.7 F L 97.9 F Temperature Source Oral Oral Pulse Rate 62 64 Pulse Strength Respiratory Rate 16 14 Respiratory Effort Normal Non-Labored Respiratory Depth Normal Respiratory Pattern Normal Blood Pressure 123/74 H 138/72 H Blood Pressure Mean 90 94 Blood Pressure Source Monitor Monitor Blood Pressure Position Supine Supine Blood Pressure Location Right Arm Right Arm Pulse Ox 96 96 Oxygen Delivery Method Room Air Room Air Room Air 10/06/23 07:10 10/06/23 07:56 10/06/23 07:58 Temperature 97.6 F L 97.6 F L Temperature Source Oral Oral Pulse Rate 64 64 Pulse Strength Respiratory Rate 18 18 Respiratory Effort Respiratory Depth Respiratory Pattern Blood Pressure 165/83 H 165/83 H Blood Pressure Mean 110 110 Blood Pressure Source Monitor Monitor Blood Pressure Position Semi-Fowlers Supine Blood Pressure Location Right Arm Right Arm Pulse Ox 97 97 95 Oxygen Delivery Method Room Air Room Air Room Air 10/06/23 11:16 Temperature Temperature Source Pulse Rate Pulse Strength Respiratory Rate Respiratory Effort Respiratory Depth Respiratory Pattern Blood Pressure Blood Pressure Mean Blood Pressure Source Blood Pressure Position Blood Pressure Location Pulse Ox 95 Oxygen Delivery Method Weight Weight: 115.4 kg Body Mass Index (BMI) 35.4 NIHSS NIHSS Nursing Documentation NIHSS Nursing Documentation: NIHSS: Ischemic Stroke/TIA Start: 10/05/23 12:58 Text: For PCU Patients: NIH and Neuro Check every 4 Status: Active hours and PRN Freq: [id number] Protocol: Activity Type Activity Date Activity User E-sign Co-sign Detail Recorded Client Recorded Date Recorded By Document 10/06/23 07:56 NB Desktop 10/06/23 07:57 NB 10/06/23 07:56 NIH Stroke Scale [NIHSS] A score of 0 is normal or asymptomatic . Total possible score is 42. Inpatient: RN or Physician to activate a stroke alert for onset of new stroke symptoms or with NIHSS increase >/= 3 points. Following change in neurological status, NIHSS will be performed per physician order or more frequently PRN. -1a. Level of Consciousness Alert; keenly responsive -1b. LOC Questions Answers BOTH questions correctly. -1c. LOC Commands Performs both tasks correctly . -2. Best Gaze Normal -3. Visual No visual loss -4. Facial Palsy Normal symmetrical movements -5a. Left Arm No drift; arm holds 90 (or 45 ) degrees for full 10 seconds -5b. Right Arm No drift; arm holds 90 (or 45 ) degrees for full 10 seconds -6a. Left Leg No drift; leg holds 30-degree position for full 5 seconds -6b. Right Leg No drift; leg holds 30-degree position for full 5 seconds -7. Limb Ataxia Absent -8. Sensory Normal; no sensory loss -9. Best Language No aphasia; normal -10. Dysarthria Normal -11. Extinction and Inattention No abnormality -Total 0 Query Text:A score of 0 is normal or asymptomatic. Total possible score is 42 . ED: Notify Physician for NIHSS increase by > / = 3 points. Inpatient: RN or Physician to activate a stroke alert for NIHSS increase of > / = 3 points. Coma Scale [Assess] -Eye Opening Spontaneous -Motor Obeys Commands -Verbal Oriented [Total] -Coma Scale Total 15 NIHSS 1a. Level of Consciousness: Alert; keenly responsive 1b. LOC Questions: Answers BOTH questions correctly. 1c. LOC Commands: Performs both tasks correctly. 2. Best Gaze: Normal 3. Visual: No visual loss 4. Facial Palsy: Normal symmetrical movements 5a. Left Arm: No drift; arm holds 90 (or 45) degrees for full 10 seconds 5b. Right Arm: No drift; arm holds 90 (or 45) degrees for full 10 seconds 6a. Left Leg: No drift; leg holds 30-degree position for full 5 seconds 6b. Right Leg: No drift; leg holds 30-degree position for full 5 seconds 7. Limb Ataxia: Absent 8. Sensory: Normal; no sensory loss 9. Best Language: No aphasia; normal 10. Dysarthria: Normal 11. Extinction and Inattention: No abnormality Total: 0 Lab / Micro Data 10/06/23 06:35 10/06/23 06:35 Labs: Laboratory Results - last 24 hr 10/06/23 06:35: WBC 5.1, RBC 5.13, Hgb 15.6, Hct 45.4, MCV 88.5, MCH 30.4, MCHC 34.4, RDW Std Deviation 43.1, RDW Coeff of Francoise 13.1, Plt Count 207, MPV 9.0, Immature Gran % (Auto) 0.200, Neut % (Auto) 61.5, Lymph % (Auto) 29.4, [place] % (Auto) 7.5, Eos % (Auto) 1.0, Baso % (Auto) 0.4, Absolute Neuts (auto) 3.1, Absolute Lymphs (auto) 1.49, Nucleated RBC % 0, Sodium 140, Potassium 3.6, Chloride 111 H, Carbon Dioxide 26.0, Anion Gap 3 L, BUN 5 L, Creatinine 0.69 L, Estim Creat Clear Calc 143.41, Est GFR (MDRD) Af Amer 148, Est GFR (MDRD) Non-Af 123, BUN/Creatinine Ratio 7.2 L, Glucose 115 H, Calcium 8.8, Triglycerides 113, Cholesterol 188, LDL Cholesterol 120, VLDL Cholesterol 23, HDL Cholesterol 45 Imaging Radiology Impression Brain MRI 10/05/23 12:58 IMPRESSION: Acute lacunar ischemic infarct in the right posterior parietal lobe cortex. Electronically Signed: Shane Park MD at 15:03 EST , ADDENDUM: 10/05/23 1527 IMPRESSION: Acute lacunar ischemic infarct in the right posterior parietal lobe cortex. N.B. : The above Results were Read Back by Shane Park MD to Ramon Bae MD, and understanding confirmed on 10/05/2023 15:20:37 (ET). Electronically Signed: Shane Park MD at 15:03 EST , Carotid Duplex 10/05/23 12:58 Interpretation Summary Moderate (50-69%) stenosis right extracranial internal carotid. Moderate (50-69%) stenosis left extracranial internal carotid. Patent and antegrade vertebrals bilaterally. Ordering Physician: Ramon Bae Referring Physician: Bean West Performed By: Adilia Byers RDCS, RVT Echocardiogram 10/05/23 12:58 Interpretation Summary Normal LV size. Moderate concentric left ventricular hypertrophy. Left ventricular systolic function is normal. The left ventricular ejection fraction is 50 %. Stage 1 diastolic dysfunction. Bubble contrast study negative for right to left interatrial shunt. Ordering Physician: Ramon Bae Referring Physician: Bean West Performed By: Miriam Croft RDCS Active Medications Active Medications Active Medications: Current Medications Generic Name Dose Route Start Last Admin Trade Name Freq PRN Reason Stop Dose Admin Acetaminophen 650 mg 10/05/23 17:19 10/06/23 07:06 Acetaminophen 325 Mg Tablet PO 650 mg Q4H PRN PRN Administration Pain 1-10 or Fever Aspirin 81 mg 10/06/23 08:00 10/06/23 09:44 Aspirin 81 Mg Tab.Chew PO 81 mg BREAKFAST APOLLO Administration Atorvastatin Calcium 80 mg 10/05/23 22:00 10/05/23 20:53 Atorvastatin Calcium 80 Mg Tablet PO 80 mg QHS APOLLO Administration Clopidogrel Bisulfate 75 mg 10/06/23 11:10 10/06/23 11:51 Clopidogrel Bisulfate 75 Mg Tablet PO 75 mg DAILY APOLLO Administration Hydralazine HCl 5 mg 10/05/23 12:58 Hydralazine 20 Mg/Ml Vial IV Q30M PRN to maintain BP goals Sodium Chloride 250 mls @ 15 mls/hr 10/05/23 12:48 IV .[id number] PRN Additional IVPB Infusion Sodium Chloride 250 mls @ 15 mls/hr 10/05/23 12:48 IV .[id number] PRN Saline Flush Labetalol HCl 10 - 20 mg 10/05/23 12:58 Labetalol (Prefilled) 20 Mg/4 Ml IV Q10M PRN PRN to Maintain BP Goals Sodium Chloride 10 - 40 ml 10/05/23 12:48 0.9% Saline Lock 10 Ml Syringe IV UD PRN SALINE FLUSH
--- NOTE | 2023-10-06 13:07 | PCM.DC.SUM ---
Providers Date of Admission: 10/05/23 Primary Care Physician: Dr. Bean West, DO Consultations 10/05/23 12:58 Consult: Vascular Surgery Routine Consulting Provider: Tamir Romero Reason for Consult: Carotid stenosis, duplex ordered EMERGENT Consult: No MD Notified: Yes Date Notified: 10/05/23 Time Notified: 11:35 Method of Notification: ED Physician Initiated 10/05/23 15:13 Consult: Tele-Neurology Routine Consulting Provider: [facility] Reason for Consult: Acute right parietal infarct EMERGENT Consult: No MD Notified: Yes Date Notified: 10/05/23 Time Notified: 15:38 Method of Notification: Answering Service Nursing Unit Staff Notify [facility] of Tele-Neurology Consult: Yes Reason For Visit: CVA VS TIA WITH CAROTID OCCLUSION Diagnosis Discharge Diagnosis (1) Stenosis of right internal carotid artery with cerebral infarction: Status: Acute Code(s): I63.231 - Cerebral infarction due to unspecified occlusion or stenosis of right carotid arteries Plan 1. Right-sided lacunar infarct in the right parietal lobe/morbid obesity/tobacco abuse ? Will consult neurology, and will continue with the stroke protocol ? Continue with statin and aspirin ? Continue with telemetry for another 24 hours ? Symptoms have completely resolved ? Discussed tobacco cessation and the necessity of the to prevent future strokes DVT: SCDs 75 minutes was spent on direct patient care, including documentation as well as chart review and collaboration with colleagues Medications at Discharge Home Medications aspirin 81 mg chewable tablet 81 mg PO BREAKFAST 30 days #30 tabs 10/06/23 atorvastatin 80 mg tablet 80 mg PO QHS 30 days #30 tabs 10/06/23 clopidogrel 75 mg tablet 75 mg PO DAILY 30 days #30 tabs 10/06/23 Hospital Course Operations None Procedures 2-D Echocardiogram Summary of Care Provided Minutes Spent on Discharge: 37 Hospital Course: Per HPI: LAMAR HERMOSILLO, is a 63 M who presents to the hospital with signs and symptoms of a stroke. Last night he went to bed around 9 PM and was normal and then this morning he woke up at around 5 AM and he could not use his left arm he also had some changes in vision in his left eye. So he presented to the hospital. CTA of the head and neck showed fairly significant stenoses bilaterally and the case was discussed with vascular surgery who agreed to see him in the hospital. From the time of presenting to the ER to my evaluation, his symptoms had completely resolved. He denies any weakness and no longer has any numbness or tingling in his extremities. No blurriness in his vision and no aphasia. Hospital Course: 1. Right-sided lacunar infarct in right parietal lobe/morbid obesity/tobacco abuse?61-year-old male present to the hospital with strokelike symptoms. He had an MRI which demonstrated a right lacunar stroke. He was started on aspirin and Lipitor and vascular surgery was consulted secondary to carotid disease. Carotid ultrasound demonstrated 50 to 69% bilateral stenosis and they recommended the addition of Plavix. Patient would like to proceed with outpatient surgery and I discussed with him the option of staying until tomorrow to obtain a stress test for cardiac clearance prior to surgery however he prefers to go home and have everything done as an outpatient. Echo was unremarkable with stage I diastolic dysfunction and EF of 50%. He was evaluated by [facility] neurology who did not have any further recommendations at this time. I discussed with him and his the plan for discharge today he expressed understanding of the risk of his going home and would like to go home today. Physical Exam Narrative General: Alert, Oriented x3, Cooperative, No apparent distress HEENT: Atraumatic, PERRLA, EOMI, Normocephalic Oral: Moist Mucosa Neck: Supple, No JVD Lungs: Diminished, Normal air movement, No rhonchi, No wheeze, No rales Cardiovascular: Regular rate, Regular Rhythm, Normal S1, Normal S2, No murmurs Abdomen: Soft, Non Tender, Non-Distended, No Hepato-splenomegaly Extremities: No edema, Capillary Refill Less than 3 Seconds Skin: No rashes, No breakdown Musculoskeletal: No Tenderness to Palpation of Joints or Extremities Neurological: No focal neurological deficits, Motor Exam 5/5 strength throughout, Sensory exam intact to light touch and pain Psych/Mental Status: Normal Affect, Appropriate Weight / BMI Weight Weight: 254 lb 6.615 oz Body Mass Index (BMI) 35.4 ABG / Lab / Microbiology Data 10/06/23 06:35 10/06/23 06:35 Laboratory: Laboratory Results - last 24 hr 10/06/23 06:35: WBC 5.1, RBC 5.13, Hgb 15.6, Hct 45.4, MCV 88.5, MCH 30.4, MCHC 34.4, RDW Std Deviation 43.1, RDW Coeff of Francoise 13.1, Plt Count 207, MPV 9.0, Immature Gran % (Auto) 0.200, Neut % (Auto) 61.5, Lymph % (Auto) 29.4, [place] % (Auto) 7.5, Eos % (Auto) 1.0, Baso % (Auto) 0.4, Absolute Neuts (auto) 3.1, Absolute Lymphs (auto) 1.49, Nucleated RBC % 0, Sodium 140, Potassium 3.6, Chloride 111 H, Carbon Dioxide 26.0, Anion Gap 3 L, BUN 5 L, Creatinine 0.69 L, Estim Creat Clear Calc 143.41, Est GFR (MDRD) Af Amer 148, Est GFR (MDRD) Non-Af 123, BUN/Creatinine Ratio 7.2 L, Glucose 115 H, Calcium 8.8, Triglycerides 113, Cholesterol 188, LDL Cholesterol 120, VLDL Cholesterol 23, HDL Cholesterol 45 Radiography Diagnostic Testing: Radiology Impression Brain MRI 10/05/23 12:58 IMPRESSION: Acute lacunar ischemic infarct in the right posterior parietal lobe cortex. Electronically Signed: Shane Park MD at 15:03 EST , ADDENDUM: 10/05/23 1527 IMPRESSION: Acute lacunar ischemic infarct in the right posterior parietal lobe cortex. N.B. : The above Results were Read Back by Shane Park MD to Ramon Bae MD, and understanding confirmed on 10/05/2023 15:20:37 (ET). Electronically Signed: Shane Park MD at 15:03 EST , Carotid Duplex 10/05/23 12:58 Interpretation Summary Moderate (50-69%) stenosis right extracranial internal carotid. Moderate (50-69%) stenosis left extracranial internal carotid. Patent and antegrade vertebrals bilaterally. Ordering Physician: Ramon Bae Referring Physician: Bean West Performed By: Adilia Byers RDCS, RVT Echocardiogram 10/05/23 12:58 Interpretation Summary Normal LV size. Moderate concentric left ventricular hypertrophy. Left ventricular systolic function is normal. The left ventricular ejection fraction is 50 %. Stage 1 diastolic dysfunction. Bubble contrast study negative for right to left interatrial shunt. Ordering Physician: Ramon Bae Referring Physician: Bean West Performed By: Miriam Croft RDCS D/C Instructions Discharge Diet: Low fat / Low cholesterol Call your doctor if you observe: Fever of 101 or Higher, Shortness of breath, Dizziness, Fainting spells, Swelling in the ankles, Chest pain and Increased palpitations (irregular heartbeat) Meaningful Use Info Meaningful Use Diagnoses (Choose all that apply): None applicable Discharge Plan Admission Admit Date/Time: 10/05/23 11:30 Attending Provider: Ramon Bae Primary Care Provider: Bean West Consulting Providers: Tamir Romero; Giovani Sawyer; Will Knutson; Shayla Menjivar; Anu Ernandez; Ashlee Tang; Ronald Ayala; Ariane Jauregui; Jamar Montalvo; Joe Bartlett; Gwen Gutierrez; Johnathan Vasquze; Charis Gutierrez; Paxton Ramírez; Issa Clinton; Natanael Malik; Adelina Kurtz; Keenan Carpenter; Shobha Perrin; Clara Street Discharge Orders/Prescriptions Prescriptions: New atorvastatin 80 mg Tablet 80 mg PO QHS 30 Days Qty: 30 0RF clopidogrel 75 mg Tablet 75 mg PO DAILY 30 Days Qty: 30 0RF aspirin 81 mg Tablet,Chewable 81 mg PO BREAKFAST 30 Days Qty: 30 0RF Referrals / Follow Up: Tamir Romero MD [Med Staff - Active Staff] - Within 2 Weeks Bean West DO [Primary Care Provider] - Within 1 Week Care Physician,No Primary [Non-Staff] - Disposition Disposition (needs filled in before D/C Order can be placed): Home, Self Care Charges/Coding Visit Charges Inpatient E&M: 30522 Disch Hosp >30min
--- NOTE | 2023-10-06 13:38 | PHA.DC.MC.R ---
Pharmacy [facility] Service has performed discharge medication reconciliation and counseling for this patient. The patient's discharge medication list was reviewed for discrepancies and discrepancies were resolved. The patient was counseled on the following discharge medications and changes in medications for homegoing were reviewed. The Reason for Use, instructions for use, and potential side effects were reviewed for all new medications. The patient's questions regarding all of their medications were answered. 1. Aspirin 81 mg PO daily 2. Atorvastatin 80 mg PO QHS 3. Clopidogrel 75 mg PO daily The patient was able to verbally demonstrate an understanding of their discharge medications. The patient was counselled on new medications by instructor adjunct pharmacy technician Joshua. Medications at Discharge Home Medications aspirin 81 mg chewable tablet 81 mg PO BREAKFAST 30 days #30 tabs 10/06/23 atorvastatin 80 mg tablet 80 mg PO QHS 30 days #30 tabs 10/06/23 clopidogrel 75 mg tablet 75 mg PO DAILY 30 days #30 tabs 10/06/23
--- NOTE | 2023-10-06 13:44 | CASEMGMT ---
Patient has order for discharge. RN CM in to discuss needs at discharge. Patient and deny needs or help at discharge. Patient had no further questions or concerns.
--- NOTE | 2023-10-06 15:07 | CHAPLAIN ---
Type of Pastoral Visit _x__ Initial Visit ___ Follow-up Visit ___ On-call Visit ___ General Patient Visit ___ Spiritual Assessment ___ Family Conference ___ Bereavement ___ Rapid Response ___ Code Blue ___ Other (describe below) Pastoral Care Referral From _x__ Patient _x__ Family ___ Nurse ___ Physician ___ Clark Driver ___ Control Systems Designer ___ Other (describe below) Sacrament/Intervention _x__ Active listening ___ Anointing ___ Cheondoism ___ Bereavement ___ Communion _x__ Sarah exploration ___ ___ Life review _x__ Prayer ___ Reconciliation ___ Sacrament of Sick _x_ Supportive presence ___ Wedding ___ Other (describe below) Pastoral Comments patient had a minor stroke and was in the ED yesterday; this home health manager had spoken with the spouse then and today; pt is accepting of his situation and thankful that he came to hospital after persuasion from spouse and sister; pt will likely have follow up surgery and states he is fine with that; pt mentions that God has looked out for him and thus a brief conversation on his beliefs and sarah practices began; pt is welcoming of prayer and states a 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
[2023-10-07 12:13] LABS: Pathologist Review Reviewed
== END 2023-10-06 12:50 | disposition home or self-care (01) ==
LOC: ED 11:26 → PCU 11:54
PROVIDERS: Admitting Provider Family Medicine; Emergency Provider Emergency Medicine; PCP Family Medicine; Visit Provider Family Medicine
DX: I63.231 Cerebral infarction due to unspecified occlusion or stenosis of right carotid arteries (principal); E66.01 Morbid (severe) obesity due to excess calories; F17.210 Nicotine dependence, cigarettes, uncomplicated; R29.702 NIHSS score 2; I10 Essential (primary) hypertension; Z79.82 Long term (current) use of aspirin; H53.8 Other visual disturbances; Z68.35 Body mass index [BMI] 35.0-35.9, adult; R20.0 Anesthesia of skin; R20.2 Paresthesia of skin; R53.1 Weakness
CPT/HCPCS: 36415; 70450; 70496; 70498; 70551; 71045; 80048; 80061; 82962; 84484; 85025; 85610; 85730; 92610; 93005; 93306; 93880; 94762; 96360; 96361; 97161; 97165; 97802; 99221; 99285; 99406; J7030; Q9957; Q9967; C8929; G0378

== ENCOUNTER → 2023-10-16 | Outpatient (CLI) | payer OTHER, SELFPAY ==
--- OUTSIDE RECORDS SUMMARY | 2023-10-16 06:36 | XMS RPT_ITS | CCD ---
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 Name Role Phone Angie VALDES, Stephen Michel Unavailable Medications Completed/Discontinued Medications Medication Drug Class(es) Dates Sig (Normalized) Sig (Original) cholecalciferol 400 unt oral tablet (1 source) Vitamin D Start: 07-02-2020 VITAMIN D3 TABS One tablet daily CHOLECALCIFEROL TABS [id number] Stephen Adams MD Problems Active Problems Problem Classification Problem Date Documented Da te Episodic/Chronic Other connective tissue disease (1 source) Palmar fascial fibromatosis [Dupuytren]; Translations: [Palmar fascial fibromatosis [Dupuytren]] Onset: 07-02-2020 07-02-2020 Episodic Past or Other Problems Problem Classification Problem Date Documented Da te Episodic/Chronic Unclassified (1 source) Problem Results Test Name Value Interpretation Reference Range Facil ity Vital Signs Date Time Vital Sign Value Performing Clinician Facility NEGATED: Highlighted [id number] 10:020500 BMI (Body Mass Index) 37.79 kg/m2 [facility] Work Phone: NEGATED: Highlighted [id number] 10:020500 Body weight 115.67 kg [facility] Work Phone: NEGATED: Highlighted [id number] 10:020500 Body weight 116 kg [facility] Work Phone: NEGATED: Highlighted [id number] 10:020500 Height 175.26 cm Kya Degarmo RT [facility] Work Phone: NEGATED: Highlighted [id number] 10:02-0500 Height 175 cm Kya Shannon RT [facility] Work Phone: Encounters Encounter Date Encounter Type Care Provider Facility Start: 07-02-2020 End: 07-02-2020 Patient encounter procedure Stephen Adams MD Work Phone: [facility] Work Phone: Procedures Date Procedure Procedure Detail Performing Clinician Start: 07-02-2020 End: 07-02-2020 Blood pressure screening not performed - reason not given Stephen Adams MD Work Phone: Start: 07-02-2020 End: 07-02-2020 BMI documented as above normal parameters - follow-up documented Stephen Adams MD Work Phone: Start: 07-02-2020 End: 07-02-2020 Documentation of current medications Stephen Adams MD Work Phone: Start: 07-02-2020 End: 07-02-2020 Pain assessment documented as positive - follow-up documented Stephen Adams MD Work Phone: Start: 07-02-2020 End: 07-02-2020 Pt tobacco screen rcvd tlk Stephen Adams MD Work Phone: Start: 07-02-2020 End: 07-02-2020 Radex hand minimum 3 views Stephen Adams MD Work Phone: NEGATED: Highlighted rowStart: 07-02-2020 End: 07-02-2020 Documentation of current medications Kya Ortega RT NEGATED: Highlighted rowStart: 07-02-2020 End: 07-02-2020 Smoking cessation education Kya Ortega RT Plan of Treatment Date Care Activity Detail Author Start: 07-02-2020 End: 07-02-2020 Appointment Appointment [facility] Work Phone: Patient Education \[email or web address]\CPS_ PtEducation [id number].pdf [facility] Work Phone: Social History Date Type Detail Facility NEGATED: Highlighted rowStart: 07-02-2020 End: 07-02-2020 Alcohol use Alcohol use [facility] Work Phone: NEGATED: Highlighted rowStart: 07-02-2020 End: 07-02-2020 Assertion Current every day smoker [facility] Work Phone: NEGATED: Highlighted rowStart: 07-02-2020 End: 07-02-2020 Employment detail Employment detail [facility] Work Phone: NEGATED: Highlighted rowStart: 07-02-2020 End: 07-02-2020 Tobacco use and exposure Tobacco use and exposure [facility] Work Phone: Chief Complaint Chief Complaint Description Start Date left hand Preliminary chief co mplaint data, not yet signed by the author as of Instructions Instruction Description Start Date Patient advised to follow-up with Primary Care Physician for BMI management. Advance Directives There may be information available, but it has not been provided by the sender. Assessments There may be information available, but it has not been provided by the sender. Review of System There may be information available, but it has not been provided by the sender. Family History There may be information available, but it has not been provided by the sender. History of Present Illness There may be information available, but it has not been provided by the sender. Additional Source Comments Reason for Visit (unrecogniz ed section and content) FOR RECORDS PERTAINING TO PATIENTS WHO ARE OR HAVE BEEN ENROLLED IN A CHEMICAL DEPENDENCY/SUBSTANCEABUSE PROGRAM, SOME INFORMATION MAY BE OMITTED. This clinical summary was aggregated from multiple sources. Caution should be exercised in using it in the provision of clinical care. This summary normalizes information from multiple sources, and as a consequence, information in this document may materially change the coding, format and clinical context of patient data. In addition, data may be omitted in some cases. CLINICAL DECISIONS SHOULD BE BASED ON THE PRIMARY CLINICAL RECORDS. [facility]. provides no warranty or guarantee of the accuracy or completeness of information in this document.
--- NOTE | 2023-10-16 09:20 | STRESSREP ---
Stress Test Report Exercise myocardial perfusion stress test. 63-year-old man for preoperative evaluation for carotid surgery Stress protocol: Resting EKG demonstrates normal sinus rhythm with a rate of 63 bpm resting blood pressure is 136/84 mmHg. The patient exercised according to the regular Peter protocol for a total duration of 3 minutes attaining a maximum heart rate of 144 bpm which was 91% of maximum predicted heart rate; the maximum workload was 4.9 metabolic equivalents. At rest there were no ST or T wave changes noted to suggest ischemia and at peak exercise upsloping ST changes only were noted which did not meet the criteria for ischemia. No clinical angina was noted the test was terminated due to the target heart rate being achieved/fatigue. The peak blood pressure was 198/94 mmHg. Rate-pressure product was 26,300. Myocardial perfusion protocol. 14.2 mCi of technetium 99m sestamibi was injected at rest. The patient exercised according to regular Peter protocol for total duration of 3 minutes and at peak exercise 44.5 mCi of technetium 99m sestamibi was injected stress images were obtained stress and rest images were reconstructed in comparing the short axis vertical long and horizontal long axis. Gated images were also obtained. Perfusion SPECT analysis: Review of the stress images demonstrate normal uptake of tracer noted in all areas of the myocardium. The resting images similarly demonstrate normal uptake of tracer noted in all areas of the myocardium. No areas of reversibility are noted to suggest ischemia no previous infarct was noted. Gated SPECT analysis: The gated ejection fraction is 69%. Conclusion: Normal exercise myocardial perfusion stress test at a low workload Preserved ejection fraction.
== END | disposition home or self-care (01) ==
LOC: CVS 06:34
PROVIDERS: PCP Family Medicine; Referring Provider Surgery Trauma Surgery; Visit Provider Surgery Trauma Surgery
DX: Z01.810 Encounter for preprocedural cardiovascular examination (principal); I63.231 Cerebral infarction due to unspecified occlusion or stenosis of right carotid arteries
CPT/HCPCS: 78452; 93017; A9500; A4216

== ENCOUNTER 2023-10-20 09:41 | Inpatient (IN) | payer OTHER, SELFPAY ==
[2023-10-20] VITALS (14 sets, daily range): BP systolic 108–141; BP diastolic 64–92; PULSE 61–93; RESP 14–22; TEMP 36.1–36.5; O2SAT 91–100; BMI 35.1; BMI 35.2
[2023-10-20] MEDS: Lactated Ringers 1,000 ML 15 ML IV (10:04)
--- NOTE | 2023-10-20 11:09 | PCM.HP.BLA ---
History and Physical Allergies No Known Allergies Allergy (Verified 10/14/23 16:10) Medications aspirin 81 mg chewable tablet 81 mg PO BREAKFAST BLOOD THINNER 30 days #30 tabs 10/06/23 [Rx Confirmed 10/14/23] atorvastatin 80 mg tablet 80 mg PO QHS CHOLESTEROL 30 days #30 tabs 10/06/23 [Rx Confirmed 10/14/23] clopidogrel 75 mg tablet 75 mg PO DAILY BLOOD THINNER 30 days #30 tabs 10/06/23 [Rx Confirmed 10/14/23] PFSH Medical History Dupuytren's contracture of both hands Former smoker Shortness of breath on exertion TIA (transient ischemic attack) Wears glasses Surgical History History of skin graft Hx of foot surgery Status post Dupuytren's fasciectomy Family History Other Heart disease Social History Smoking Status: Heavy Smoker (>10/day) HPI HPI HPI: LAMAR HERMOSILLO, is a 63 M who presents to the office today for follow up of symptomatic right ICA stenosis. Continues on ASA/plavix, statin without side effects. no new numbness/weakness/vision loss/speech difficulty. He has a stress test Thursday. Tentative for OR next Thursday. ROS General General: Yes fatigue; No weight change, appetite, colon cancer, breast cancer or weakness HEENT HEENT: No difficulty swallowing, eye injury, eye surgery, swollen glands or hoarseness Endo Endocrine: No thyroid disease, diabetes mellitus, thyroid cancer, Hair loss, heat intolerance or cold intolerance Skin Skin: No rash or changing moles Musc Musculoskeletal: No back problems, arthritis, rheumatoid arthritis, gout or joint pain Cardio Cardiovascular: Yes shortness of breat with exertion; No murmur, pacemaker, heart disease, atrial fibrillation, high blood pressure, heart attack, heart stent, palpitations or chest pain Psych Psychiatric: No depression, anxiety or hearing voices Resp Respiratory: Yes shortness of breath, No sleep apnea, No cough, No COPD, No asthma, No emphysema and No wheezing Gastro Gastrointestinal: No abdominal pain, No nausea or vomiting, No diarrhea, No constipation, No blood in stool, No acid reflux, Yes hemorrhoids, No ulcers, No gallbladder problem and No black,tarry stools Justice Hematologic: Yes blood thinners, No blood disorders, No bleeding, No anemia and No blood clots Neuro Neurologic: No system reviewed and no additional complaints, except as documented, No as per HPI, No abnormal gait, No abnormal hearing, No abnormal movements, No abnormal speech, No behavioral changes, No burning sensations, No confusion, No convulsions, No disequilibrium, No dizziness, No localized weakness, No frequent falls, Yes headache(s), No lack of coordination, No loss of vision, No memory loss, Yes numbness, No other visual disturbances, No radicular pain, No restless legs, No sensory deficit, No syncope, Yes tingling, No tremor(s), No weakness and No other Exam Const General: cooperative, healthy appearing, comfortable, no acute distress and well developed Nutritional Appearance: well nourished Orientation: alert, awake and oriented x3 [facility] Head: normocephalic and atraumatic Ears: hearing grossly normal bilaterally Nose: external nose normal Eyes General: appearance normal, both eyes and all related structures EOM: EOM intact bilaterally Neck Neck: normal visual inspection, full ROM, no lymphadenopathy and trachea midline Thyroid: thyroid normal Lymphatic: no lymphadenopathy noted Resp Effort & Inspection: normal respiratory effort, able to speak in complete sentences, symmetric chest movement, no audible wheezes, not labored, no stridor and no use of accessory muscles Cardio Rate: regular rate Rhythm: regular rhythm Skin General: no rashes or lesions noted and no erythema Wounds: no wounds Neuro Cranial Nerves: CN's II-XI intact bilaterally and EOM intact bilaterally Speech: speech normal Gait: normal gait Motor: strength 5/5 throughout Sensory Exam: no sensory deficits noted Psych Appearance: grossly normal and well kempt Mental Status: mental status grossly normal Mood: congruent mood Speech and Movement: speech and movement normal Thought Content: normal Judgment: judgment good Coding Level of Care Code Off vis,est,level 3 Diagnoses Stenosis of right internal carotid artery with cerebral infarction I63.231 Assessment and Plan Assessment and Plan (1) Stenosis of right internal carotid artery with cerebral infarction: Status: Chronic Plan: -stress test normal -right CEA
[2023-10-20] MEDS: Cefazolin 3 GM in 0.9% Normal Saline (100mL Bag) 100 ML IV (11:22)
--- NOTE | 2023-10-20 11:45 | PLAQ_PTH ---
PATHOLOGY RESULTS PATIENT: LAMAR HERMOSILLO LOC: [facility] U#:[id number] AGE/SX: 63/M ROOM: [place] [id number] RE10/20/[address]: Dr. Tamir Romero MD : 1960 BED: 1 DIS: 10/21/2023 SPEC #: [id number] RECD: 10/21/23 07:57 STATUS: PRICILLA BOO #: [id number] WENDY: 10/20/23 11:[address]: Tamir Romero DEPT: SURGICAL PATHOLOGY RECD BY: Jessy Dotson ENTERED: 10/21/23 07:58 SP TYPE: PLAQUE OTHR DR: Dr. Bean West DO Tissues: PLAQUE Procedures: Decalcification bone/plaque Surgery Specimen Level III HEADER OPERATION: Carotid endarterectomy PRE-OP DIAGNOSIS: Stenosis of right internal carotid artery with cerebral infarction TISSUE SUBMITTED: Plaque right carotid MICROSCOPIC DIAGNOSIS Right internal carotid artery, endarterectomy: Calcified atheromatous plaque consistent with severe stenosis. AM:grecia 10/26/2023 GROSS DESCRIPTION Received in fixative is one container labeled with the patient's name and designated plaque right carotid. The specimen consists of a tubular piece of roper-yellow, indurated tissue measuring 2.0 cm in length and 0.9 cm in diameter. The lumen focally is markedly narrow. The specimen cuts with gritty sensation. Also present in the container is an additional piece of roper, indurated tissue measuring in aggregate 1.0 x 1.0 x 0.3 cm. The entire specimen is submitted in one cassette after decalcification. / SJ:grecia 10/21/2023 TC:5 CPT: 09749, 10454
--- NOTE | 2023-10-20 14:16 | PCM.OPRPT ---
Report of Operation Date of Procedure: 10/20/23 Pre-Operative Diagnosis: right carotid stenosis Post-Operative Diagnosis: same Surgery/Procedure Performed:: right carotid endarterectomy Surgeon: Tamir Romero Type of Anesthesia: General Drains: 19 Fr KASSIE Estimated Blood Loss (mL): 25 Description of Procedure: HPI: Patient is a 63-year-old male who initially presented with right hemispheric transient ischemic attack symptoms. He had a CTA which revealed greater than 50% stenosis of the right internal carotid artery and he presents now for carotid endarterectomy for stroke prevention. Description of procedure: Upon obtaining form consent and verification correct patient procedure site patient taken to the operating was placed under general anesthesia. He was then positioned prepped and draped in usual fashion time was performed. Oblique incision was then created along the anterior border the sternocleidomastoid and Bovie electrocautery was dissect down through the subcutaneous tissue to the platysma. The platysma was then divided self-retaining retractors put in position after which dissection was then carried down to the sternocleidomastoid. This was then freed along the anterior border and retracted laterally exposing the jugular vein. Sharp dissection used dissect free the internal jugular vein and the facial vein identified, ligated with silk ties, and divided. The jugular vein was then retracted laterally exposing the carotid vessels and sharp dissection used to dissect free the proximal common carotid artery and a right angle used to place a vessel loop. Dissection was then carried distally onto the internal carotid artery beyond the area of palpable and visible plaque in the vessel dissected free circumferentially. Writing was used to place a vessel loop and the patient was in heparinized and allowed to circulate for 3 minutes. While this was circulating sharp dissection used to dissect free the external carotid artery and the right used to place a vessel loop. Vessels then occluded first the internal followed, and the external. Longitudinal arteriotomy was created with 11 blade on the common carotid artery and extended with Rojo scissors onto the internal carotid artery. A 12 [place] shunt was then placed first distally, the backbleed before placing proximally in the common carotid artery. This was then interrogated Doppler found to be patent with low resistance signal. We then performed endarterectomy with a freer elevator with a satisfactory endpoint distally on the internal carotid artery and eversion endarterectomy of the external carotid artery. The limb was then flushed heparinized saline and cleared of debris and then the distal endpoint tacked with 7-0 Prolene interrupted sutures. Next a bovine pericardial patch was brought in the field and secured in position with a 6-0 Prolene running fashion. Prior to completing the suture line the shunt was removed and the vessels back flushed. After completing suture line the internal carotid artery was released allowing to backbleed into the bifurcation then reoccluded its origin. Clamps were then removed from the external and the common carotid artery allowing 10 heartbeats of antegrade flow into the external carotid artery before reestablishing flow into the internal carotid artery. The vessel was interrogated with Doppler and the internal carotid artery was patent with low resistance signal. The external carotid artery had abnormally high resistance signal is felt to be at high risk for occlusion so the vessel was then dissected free more distally and a right angle used to place a vessel loop. The external carotid artery was then individually occluded with Vesseloops longitudinal arteriotomy created 11 blade then extended with Rojo scissors. There was bulky plaque and flow-limiting dissection identified. An endarterectomy of the external carotid artery was then performed in the distal endpoint tacked with 7-0 Prolene. The external carotid was then closed primarily with 7-0 Prolene running fashion. After completing the suture line clamps removed satisfactory stasis was noted there is now normal Doppler signal in the external carotid artery. Heparin was then reversed with protamine and the incision inspected hemostasis. Chhaya topical hemostatic was applied and a 19 [place] channel KASSIE was placed via a separate stab incision. The incision was then closed with 2-0 Vicryl, 3-0 Vicryl, 4 Monocryl and Dermabond for the skin. Patient was then awake from anesthesia moving all extremities to command with cranial nerves intact. He was then taken to the recovery room with anticipated mission intensive. For hemodynamic and neurologic monitoring.
[2023-10-20] MEDS: Bupivacaine 0.5% PF 10 ML VIAL (14:23)
[2023-10-20 15:33] LABS: ACT Activated Clotting Time 152 sec (74-137)
[2023-10-20 15:34] LABS: ACT Activated Clotting Time 315 sec (74-137)
[2023-10-20 15:35] LABS: ACT Activated Clotting Time 271 sec (74-137)
[2023-10-20 15:36] LABS: ACT Activated Clotting Time 250 sec (74-137)
[2023-10-20] MEDS: 0.45% Normal Saline 1,000 ML 100 ML IV (15:40)
[2023-10-20] MEDS: oxyCODONE 5 MG Tablet PO ×2 (15:40→20:00)
[2023-10-20] MEDS: Cefazolin 1 GM/50 ML BAG IV (19:06)
[2023-10-20] MEDS: Acetaminophen 500 MG Tablet 1000 MG PO (20:00)
[2023-10-21] VITALS (17 sets, daily range): BP systolic 110–144; BP diastolic 44–101; PULSE 61–93; RESP 14–24; TEMP 36.1–36.6; O2SAT 91–98; BMI 36.3
[2023-10-21] MEDS: HYDROmorphone Inj 0.2 MG/ML SYRINGE 0.200000000000000011 MG IV (00:14)
[2023-10-21] MEDS: oxyCODONE 5 MG Tablet PO ×2 (00:18→15:28)
[2023-10-21] MEDS: MELATONIN 3 MG TABLET PO (00:18)
[2023-10-21] MEDS: 0.45% Normal Saline 1,000 ML 100 ML IV (00:20)
[2023-10-21] MEDS: 0.9% Saline Lock 10 ML Syringe IV (03:06)
[2023-10-21] MEDS: Cefazolin 1 GM/50 ML BAG IV (03:06)
[2023-10-21 03:22] LABS: Absolute Lymphocyte Count 0.54 X10^3/uL (0.83-4.51); Absolute Neutrophil Count 10.6 X10^3/uL (2.0-7.7); Basophil# 0.01 X10^3/uL; Basophil% 0.1 % (0-1); Hemoglobin 14.4 g/dL (13.0-16.5); Lymphocyte # 0.54 X10^3/ul (0.83-4.51); Lymphocyte % 4.6 % (19-41); Mean Corp Hgb Conc 33.5 g/dL (32-36); Mean Corpuscular Hgb 29.4 pg (27.0-32.0); Mean Corpuscular Volume 87.9 fL (80-94); Mean Platelet Vol. 8.9 fl (6.2-12.0); Monocyte# 0.49 X10^3/uL; Monocyte% 4.2 % (0-10); NRBC Flagged by Analyzer 0 % (0-5); Neutrophil # 10.57 X10^3/uL (2.7-7.7); Neutrophil % 90.7 % (47-70); POSITIVE DIFFERENTIAL YES; Platelet Count 229 K/mm3 (150-450); RBC Distribution Width SD 41.9 fl (35.1-43.9); Red Blood Count 4.89 M/mm3 (4.6-6.2); White Blood Count 11.7 K/mm3 (4.4-11.0)
[2023-10-21] MEDS: Acetaminophen 500 MG Tablet 1000 MG PO ×2 (05:46→15:28)
[2023-10-21] MEDS: Mag Hydrox/Al Hydrox/Simeth 30 ML UDC PO (05:46)
[2023-10-21] MEDS: Aspirin 81 MG TAB.CHEW PO (08:59)
--- NOTE | 2023-10-21 09:30 | NURSING ---
Significant amount of bleeding noted from KASSIE removal site. Pressure held and bleeding continued. paged.
--- NOTE | 2023-10-21 09:45 | NURSING ---
Anu PEDRAZA at bedside, assisting w/ applying pressure dressing. Will update Dr. Romero and come re-assess shortly.
--- NOTE | 2023-10-21 11:43 | CASEMGMT ---
FRANKLIN ZELAYA Assessment Face to Face with patient for initial transition planning/care coordination assessment. FRANKLIN ZELAYA introduced self and role at [facility], pt voices understanding. Pt is A&Ox4 and is resting comfortably in bed and is calm. Pt at bedside. Care providers, pharmacy, and demographics verified. Admitting dx: Rt Carotid Stenosis LACE Strata:1 PCP: Jenna Specialists: Nick Velez Pharmacy: [facility] Insurance: MMO Prescription Benefit: Yes LNOK: Inga Stone - Living Arrangements: Pt lives with his in a single story home with a BM with HR and 2 steps to enter with HR and no issues. ADLs/IADLs: Ind Transportation: Pt drives. Pt will drive the pt home from [facility] DME: Cane at home but does not use. Walk-in shower with GB and seat. Denies all other DME uses or needs. HHC/SNF: Denies history or needs. Smoking: Pt states that he recently quit smoking on 10/05/23. Pt?s goal: Home Plan: Pt 6-Click is 24. Pt states that he was cleared by PT (there is no note in at this time). Pt states that he wants to DC home today with no additional needs. Pt denies needing HHC or OP set up at this time. Pt states that he feels safe and comfortable discharging home. Beverly Benavides RN, CM
--- NOTE | 2023-10-21 12:08 | PN.SURG_ITS ---
Subjective Subjective Patient was seen resting comfortably in bed this morning. He tolerated the procedure well yesterday. He reports overall minimal discomfort at the incision site. He denies any ALMANZA, vision changes, weakness, or sensory deficits other than some numbness right around the incision. His BP have been stable. He had about 5 0cc total out of the drain since surgery, with only about 10 drained this morning. He had some burning with urination after the lopez was removed, but this is improving. He tolerated breakfast well. He has not been up to the chair or ambulating yet. Objective Data Objective Data Vital Signs: Vital Signs Temp Pulse Resp BP Pulse Ox O2 Del Method O2 Flow Rate 97.5 F L 80 16 135/61 H 98 Room Air 6 10/21/23 04:00 10/21/23 07:00 10/21/23 07:00 10/21/23 07:00 10/21/23 09:43 10/21/23 09:43 10/20/23 14:45 Oxygen Flow Rate (L/min) 6 Oxygen Delivery Method Room Air Weight: 259 lb 4.817 oz Body Mass Index (BMI) 36.3 Intake & Output: Intake and Output for Last 24 Hours 10/19/23 10/20/23 10/21/23 23:59 23:59 23:59 Intake Total 2165 / 2165 1783.34 / 1783.34 Output Total 250 / 925 1750 / 1750 Balance 1915 / 1240 33.34 / 33.34 Lab / Micro Data 10/21/23 03:15 Labs: Laboratory Results - last 24 hr 10/20/23 11:48: Activated Clotting Time 152 H 10/20/23 12:29: Activated Clotting Time 315 H 10/20/23 13:06: Activated Clotting Time 271 H 10/20/23 13:42: Activated Clotting Time 250 H 10/21/23 03:15: WBC 11.7 H, RBC 4.89, Hgb 14.4, Hct 43.0, MCV 87.9, MCH 29.4, MCHC 33.5, RDW Std Deviation 41.9, RDW Coeff of Francoise 13.0, Plt Count 229, MPV 8.9, Immature Gran % (Auto) 0.400, Neut % (Auto) 90.7 H, Lymph % (Auto) 4.6 L, Kimble % (Auto) 4.2, Eos % (Auto) 0.0, Baso % (Auto) 0.1, Absolute Neuts (auto) 10.6 H, Absolute Lymphs (auto) 0.54 L, Nucleated RBC % 0 Physical Exam Const alert, oriented x3 and no apparent distress General Appearance: cooperative and comfortable HEENT normocephalic, hearing grossly normal bilaterally and external nose normal Eyes EOMs intact bilaterally General Eye: normal appearance of both eyes Neck Neck Narrative: R Neck incision site with surgical glue intact. There is mild swelling around the incision, this is soft to palpation and with expected tenderness. There is a small amount of ecchymosis noted. There is some redness of the skin where the adhesive was in contact, otherwise no erythema/warmth. General: trachea midline Resp normal respiratory effort Effort and Inspection: able to speak in complete sentences; Negative for labored, grunting, stridor, retractions or audible wheezes Cardio regular rate and regular rhythm Extremity no clubbing, cyanosis or edema Neuro oriented x3, CN's II-XII intact bilaterally, moves all extremities, no focal motor deficits and no sensory deficits noted Speech: speech normal Psych mental status grossly normal Appearance: grossly normal Attitude: calm and engaged Activity / Motor Behavior: appropriate eye contact Speech: normal speech Mood & Affect: euthymic mood Judgement: judgement good Assessment & Plan Assessment/Plan (1) Stenosis of right internal carotid artery with cerebral infarction: PLAN: KASSIE drain was removed without issue this morning. About 30 minutes later, there was noted to be bleeding from the drain site. Manual pressure was held for a few minutes but the bleeding was persistent. There was still no significant swelling at the incision but bleeding persistent from the drain site. He was not having any associated pain or neurologic symptoms. Pressure dressing was applied but did note some bleed-through on this as well. Ultimately, appeared to be a skin vessel which was continuing to bleed so Surgicel was applied along with a new pressure dressing and no further bleed-through was noted. Will plan for him to ambulate this afternoon. As long as he does well with this and bleeding remains resolved from the drain site then anticipate discharge late this afternoon.
--- NOTE | 2023-10-21 14:05 | DS.PCM_ITS ---
Providers Date of Admission: 10/20/23 Primary Care Physician: Dr. Bean West DO Reason For Visit: RIGHT CAROTID STENOSIS Diagnosis Discharge Diagnosis (1) Stenosis of right internal carotid artery with cerebral infarction: Status: Chronic Code(s): I63.231 - Cerebral infarction due to unspecified occlusion or stenosis of right carotid arteries Plan: KASSIE drain was removed without issue this morning. About 30 minutes later, there was noted to be bleeding from the drain site. Manual pressure was held for a few minutes but the bleeding was persistent. There was still no significant swelling at the incision but bleeding persistent from the drain site. He was not having any associated pain or neurologic symptoms. Pressure dressing was applied but did note some bleed-through on this as well. Ultimately, appeared to be a skin vessel which was continuing to bleed so Surgicel was applied along with a new pressure dressing and no further bleed-through was noted. Will plan for him to ambulate this afternoon. As long as he does well with this and bleeding remains resolved from the drain site then anticipate discharge late this afternoon. Medications at Discharge Home Medications aspirin 81 mg chewable tablet 81 mg PO BREAKFAST BLOOD THINNER 30 days #30 tabs 10/06/23 oxycodone 5 mg tablet 5 mg PO Q8H PRN PRN Pain Score 4-10 5 days #15 tabs 10/21/23 Hospital Course Summary of Care Provided Hospital Course: Mr. Jorge Martinez underwent R CEA on 10/20/23 and was routinely admitted to the ICU postoperatively for hemodynamic and neurologic monitoring. He has remained neurologically intact and hemodynamically stable throughout his admission. The KASSIE drain was removed on POD#1. Shortly following KASSIE drain removal, he was noted to have persistent bleeding from this site. This was determined to be secondary to a skin vessel at the drain incision site, this was treated with Surgicel and a pressure dressing which controlled the bleeding well. This was monitored for several hours with no further bleeding noted. The incision site had mild, expect ed edema which was soft to palpation; no evidence of hematoma. He has not had any hoarseness, difficulty with speech or swallowing, facial drooping, new weakness/sensory deficits, or any persistent unilateral headaches. He has been tolerating a normal diet, voiding without difficulty, and ambulating well. He is medically stable for discharge home. Discharge instructions and return precautions were discussed with the patient and his , they acknowledged understanding. He is scheduled for f/u in the office on 11/03/2023. Physical Exam Const alert, oriented x3 and no apparent distress General Appearance: cooperative and comfortable HEENT normocephalic, hearing grossly normal bilaterally and external nose normal Eyes EOMs intact bilaterally General Eye: normal appearance of both eyes Neck Neck Narrative: R Neck incision site with surgical glue intact. There is mild swelling around the incision, this is soft to palpation and with expected tenderness. There is a small amount of ecchymosis noted. There is some redness of the skin where the adhesive was in contact, otherwise no erythema/warmth. Pressure dressing in place over the surgical drain site, no bleed-through noted. General: trachea midline Resp normal respiratory effort Effort and Inspection: able to speak in complete sentences; Negative for labored, grunting, stridor, retractions or audible wheezes Cardio regular rate and regular rhythm Extremity no clubbing, cyanosis or edema Neuro oriented x3, CN's II-XII intact bilaterally, moves all extremities, no focal motor deficits and no sensory deficits noted Speech: speech normal Psych mental status grossly normal Appearance: grossly normal Attitude: calm and engaged Activity / Motor Behavior: appropriate eye contact Speech: normal speech Mood & Affect: euthymic mood Judgement: judgement good Weight / BMI Weight Weight: 259 lb 4.817 oz Body Mass Index (BMI) 36.3 ABG / Lab / Microbiology Data 10/21/23 03:15 Laboratory: Laboratory Results - last 24 hr 10/20/23 11:48: Activated Clotting Time 152 H 10/20/23 12:29: Activated Clotting Time 315 H 10/20/23 13:06: Activated Clotting Time 271 H 10/20/23 13:42: Activated Clotting Time 250 H 10/21/23 03:15: WBC 11.7 H, RBC 4.89, Hgb 14.4, Hct 43.0, MCV 87.9, MCH 29.4, MCHC 33.5, RDW Std Deviation 41.9, RDW Coeff of Francoise 13.0, Plt Count 229, MPV 8.9, Immature Gran % (Auto) 0.400, Neut % (Auto) 90.7 H, Lymph % (Auto) 4.6 L, [place] % (Auto) 4.2, Eos % (Auto) 0.0, Baso % (Auto) 0.1, Absolute Neuts (auto) 10.6 H, Absolute Lymphs (auto) 0.54 L, Nucleated RBC % 0 D/C Instructions Discharge Diet: No restrictions May shower in (days): 1 Weight Bearing Status: Weight bearing as tolerated Lifting Restricted to (Lbs): 20 Lifting Restrictions: Do not lift greater than 20 pounds for 3 weeks Call your doctor if your incision/area has: Continuous Slow Oozing, Sudden Increased Bleeding, Increased Pain/ Swelling and Foul Smelling Discharge Call your doctor if you observe: Fever of 101 or Higher and Uncontrolled pain Remove Dressing in: 1 day Additional Instructions: You have a dressing over the site from which the surgical drain was removed. Leave this in place for another 24 hours and then you may gently remove this. If there is any further drainage, re-cover with dry dressing or bandaid. If there is not further drainage, then you may leave this open to air. Your incision site is covered with surgical glue which will continue to protect it. The surgical glue will peel/flake off on its own over the next few weeks. Please do not pick at it. You may shower tomorrow. It is okay for soap and water to rinse over the incision site, pat to dry. Do not submerge the incision site in water such as to take a bath or go swimming etc. for 3 weeks. Do not lift greater than 20 pounds for 3 weeks. Otherwise, please continue with activity as tolerated. Do not drive until you can turn your head well enough to safely check your blind spots. Your Plavix has been discontinued, please stop taking this. Please continue to take your Aspirin 81mg by mouth once daily. I have prescribed a prescription pain medication oxycodone 5 mg tablets to be taken by mouth every 8 hours as needed for pain. This is an opioid pain medication and is to be taken only as directed and as needed. Do not take in combination with any other prescription pain medications. You may take this in addition to Tylenol or ibuprofen as allowed. Your follow-up appointment is currently scheduled for 11/03/2023. If you have any questions, concerns, or need to change your appointment please contact the office at [phone]. Please Follow Up With: Tamir Romero MD When: 11/03/2023 Meaningful Use Info Meaningful Use Diagnoses (Choose all that apply): None applicable Discharge Plan Admission Admit Date/Time: 10/20/23 09:41 Primary Reason for Your Visit: Right carotid endarterectomy Attending Provider: Tamir Romero Primary Care Provider: Bean West Instructions Additional Instructions / Restrictions: You have a dressing over the site from which the surgical drain was removed. Leave this in place for another 24 hours and then you may gently remove this. If there is any further drainage, re-cover with dry dressing or bandaid. If there is not further drainage, then you may leave this open to air. Your incision site is covered with surgical glue which will continue to protect it. The surgical glue will peel/flake off on its own over the next few weeks. Please do not pick at it. You may shower tomorrow. It is okay for soap and water to rinse over the incision site, pat to dry. Do not submerge the incision site in water such as to take a bath or go swimming etc. for 3 weeks. Do not lift greater than 20 pounds for 3 weeks. Otherwise, please continue with activity as tolerated. Do not drive until you can turn your head well enough to safely check your blind spots. Your Plavix has been discontinued, please stop taking this. Please continue to take your Aspirin 81mg by mouth once daily. I have prescribed a prescription pain medication oxycodone 5 mg tablets to be taken by mouth every 8 hours as needed for pain. This is an opioid pain medication and is to be taken only as directed and as needed. Do not take in combination with any other prescription pain medications. You may take this in addition to Tylenol or ibuprofen as allowed. Your follow-up appointment is currently scheduled for 11/03/2023. If you have any questions, concerns, or need to change your appointment please contact the office at [phone]. Discharge Orders/Prescriptions Prescriptions: New oxycodone 5 mg Tablet 5 mg PO Q8H PRN PRN (Reason: Pain Score 4-10) 5 Days Qty: 15 0RF Continued aspirin 81 mg Tablet,Chewable 81 mg PO BREAKFAST 30 Days Qty: 30 0RF Discontinued clopidogrel 75 mg Tablet 75 mg PO DAILY 30 Days Qty: 30 0RF Referrals / Follow Up: Bean West DO [Primary Care Provider] - Disposition Disposition (needs filled in before D/C Order can be placed): Home, Self Care
== END 2023-10-21 16:10 | disposition home or self-care (01) | DRG 39 ==
LOC: ACINP 09:43 → ICU 14:22
PROVIDERS: Admitting Provider Surgery Trauma Surgery; PCP Family Medicine; Referring Provider Surgery Trauma Surgery; Visit Provider Surgery Trauma Surgery
PROC: 03CM0ZZ Extirpation of Matter from Right External Carotid Artery, Open Approach (ICD-10-PCS; CPT 35301; principal; 2023-10-20 11:25)
DX: I63.231 Cerebral infarction due to unspecified occlusion or stenosis of right carotid arteries (principal); F17.210 Nicotine dependence, cigarettes, uncomplicated; Z79.82 Long term (current) use of aspirin; Z86.73 Personal history of transient ischemic attack (TIA), and cerebral infarction without residual deficits
CPT/HCPCS: 36415; 85025; 85347; 86850; 86900; 86901; 88304; 88311; 94668; 97802; 99252; A4648; J7030; J7120; A4216; G0463; J2405

== ENCOUNTER → 2023-11-25 | Outpatient (CLI) | payer OTHER, SELFPAY ==
--- NOTE | 2023-11-25 08:48 | VDLE_ITS ---
Reason For Study: RLE Phlebitis RIGHT LEFT CFV is compressible, spontaneous, phasic, CFV is compressible, spontaneous, phasic, competent and demonstrates normal competent, and demonstrates normal augmentation. augmentation. FV is compressible, spontaneous, phasic, competent and demonstrates normal augmentation. POP V is compressible, spontaneous, phasic, competent and demonstrates normal augmentation. T/P Trunk is compressible. PTV is compressible. RT PerV is compressible. GSV is dilated and NONCOMPRESSIBLE from prox calf to distal thigh. Mixed intraluminal echoes noted consistent with acute SVT. GSV mid thigh to junction and mid calf to ankle are compressible. Procedure This is a venous duplex using B-mode, color flow and spectral Doppler. Exam performed in department. The exam was diagnostic. VL/Venous Duplex US, Unilateral Interpretation Summary Acute superficial vein thrombosis noted in the right great saphenous vein in th e distal thigh/proximal calf. Deep veins of the right lower extremity are patent and compressible segmentally . There is no evidence of right lower extremity deep vein thrombosis. Ordering Physician: Bean West Referring Physician: Bean West Performed By: Alin Lord RVT and Student
== END | disposition home or self-care (01) ==
LOC: CVS 08:47
PROVIDERS: PCP Family Medicine; Referring Provider Family Medicine; Visit Provider Family Medicine
DX: I80.01 Phlebitis and thrombophlebitis of superficial vessels of right lower extremity (principal)
CPT/HCPCS: 93971

== ENCOUNTER → 2024-03-03 | Outpatient (CLI) | payer OTHER, SELFPAY ==
--- NOTE | 2024-03-03 08:01 | CDU_ITS ---
Reason For Study: S/P R CEA Rt. Velocities/BP Lt. Velocities/BP Prox CCA 94.9/20.1 cm/sec. Prox CCA 58.4/9.3 cm/sec. Mid CCA 70.7/22.3 cm/sec. Mid CCA 89.1/27.8 cm/sec. Dist CCA 81.7/26.7 cm/sec. Dist CCA 83.0/24.1 cm/sec. Prox ICA 76.9/17.9 cm/sec. Prox ICA 49.3/19.7 cm/sec. Mid ICA 61.4/19.6 cm/sec. Mid ICA 85.7/27.0 cm/sec. Dist ICA 50.4/17.9 cm/sec. Dist ICA 75.4/31.4 cm/sec. Rt. ICA/CCA = 1.09. Lt. ICA/CCA = 0.96. Prox ECA 154.0/27.9 cm/sec. Prox ECA 273.1/57.3 cm/sec. Rt. Vert. 33.2/9.0 cm/sec. Lt. Vert. 28.0/8.9 cm/sec. Right Extracranial There is intimal thickening but no significant atherosclerotic plaque noted in the right common carotid artery. There is intimal thickening but no significant atherosclerotic plaque noted in the right internal carotid artery. There is intimal thickening but no significant atherosclerotic plaque noted in the right external carotid artery. Antegrade flow is noted in the right vertebral artery. Left Extracranial There is homogeneous, smooth atherosclerotic plaque noted in the left common carotid artery. There is homogeneous, smooth atherosclerotic plaque noted in the left internal carotid artery. There is intimal thickening but no significant atherosclerotic plaque noted in the left external carotid artery. Antegrade flow is noted in the left vertebral artery. Procedure Carotid Duplex [id number]. This is a Carotid Duplex examination using B-mode, color flow and specral Doppler. Exam performed in department. VL/Carotid Duplex Ultrasound Interpretation Summary Normal right extracranial internal carotid. Mild (<50%) stenosis left extracranial internal carotid. Patent and antegrade vertebrals bilaterally. Ordering Physician: Anu Fuentes Referring Physician: Bean West Performed By: Ramona Schneider RVT and Student
== END | disposition home or self-care (01) ==
PROVIDERS: PCP Family Medicine; Referring Provider Physician Assistant; Visit Provider Physician Assistant
DX: I63.231 Cerebral infarction due to unspecified occlusion or stenosis of right carotid arteries (principal); Z48.812 Encounter for surgical aftercare following surgery on the circulatory system; Z98.890 Other specified postprocedural states
CPT/HCPCS: 93880

== ENCOUNTER → 2024-07-19 | Outpatient (CLI) | payer OTHER, SELFPAY ==
[2024-07-19 18:04] LABS: Absolute Lymphocyte Count 1.93 X10^3/uL (0.83-4.51); Absolute Neutrophil Count 4.8 X10^3/uL (2.0-7.7); Basophil# 0.04 X10^3/uL; Basophil% 0.5 % (0-1); Eosinophil# 0.07 X10^3/uL; Eosinophils% 0.9 % (0-5); Hematocrit 51.1 % (40-54); Hemoglobin 17.2 g/dL (13.0-16.5); Lymphocyte # 1.93 X10^3/ul (0.83-4.51); Lymphocyte % 26.1 % (19-41); Mean Corp Hgb Conc 33.7 g/dL (32-36); Mean Corpuscular Hgb 29.5 pg (27.0-32.0); Mean Corpuscular Volume 87.7 fL (80-94); Mean Platelet Vol. 9.2 fl (6.2-12.0); Monocyte# 0.59 X10^3/uL; NRBC Flagged by Analyzer 0 % (0-5); Neutrophil # 4.75 X10^3/uL (2.7-7.7); Neutrophil % 64.2 % (47-70); Platelet Count 258 K/mm3 (150-450); RBC Distribution Width CV 13.4 % (11.6-14.6); RBC Distribution Width SD 42.6 fl (35.1-43.9); Red Blood Count 5.83 M/mm3 (4.6-6.2); White Blood Count 7.4 K/mm3 (4.4-11.0)
[2024-07-19 18:26] LABS: Vitamin B12 366 pg/mL (211-911); Vitamin D,25 Hydroxy 18.7 ng/mL
[2024-07-19 18:29] LABS: AST(SGOT) 17 U/L (15-37); Alanine Aminotransfer ALT/SGPT 33 U/L (16-61); Albumin, Serum 3.6 g/dL (3.2-5.0); Alkaline Phosphatase 107 U/L (45-117); Anion Gap 7 (5-15); BUN 10 mg/dL (7-18); BUN/Creat Ratio 14.1 RATIO (10-20); Calcium,Total 9.1 mg/dL (8.5-10.1); Chloride 106 mmol/L (98-107); Creatinine, Serum 0.71 mg/dL (0.70-1.30); EST Glomerular Filtration Rate 120 mL/min (>60); Est Glom Filt Rate - Afr Amer 145 mL/min (>60); Globulin 3.5 g/dL (2.2-4.2); Glucose 98 mg/dL (74-106); Potassium 3.8 mmol/L (3.5-5.1); Protein, Total 7.1 g/dL (6.4-8.2); Sodium Level 138 mmol/L (136-145); T4 Free Direct 1.03 ng/dL (0.76-1.46)
[2024-07-19 19:01] LABS: D-Dimer Quantitative (DVT/PE) 0.27 FEU/ug/m (0.27-0.49)
== END | disposition home or self-care (01) ==
LOC: BFHLAB 15:58
PROVIDERS: PCP Nurse Practitioner Family; Referring Provider Nurse Practitioner Family; Visit Provider Nurse Practitioner Family
DX: R53.83 Other fatigue (principal); Z86.718 Personal history of other venous thrombosis and embolism; I10 Essential (primary) hypertension
CPT/HCPCS: 36415; 80053; 82306; 82607; 84439; 84443; 85025; 85379

== ENCOUNTER → 2024-10-14 | Outpatient (CLI) | payer OTHER, SELFPAY ==
--- NOTE | 2024-10-14 10:57 | CDU_ITS ---
Reason For Study Reason For Study: HX Rt CEA Rt. Velocities/BP Lt. Velocities/BP Prox CCA 92.8/21.6 cm/sec. Prox CCA 105.2/21.2 cm/sec. Mid CCA 94.1/16.7 cm/sec. Mid CCA 94.1/20.4 cm/sec. Dist CCA 84.2/25.3 cm/sec. Dist CCA 76.1/24.2 cm/sec. Prox ICA 86.7/22.8 cm/sec. Prox ICA 159.7/53.4 cm/sec. Mid ICA 80.6/26.5 cm/sec. Mid ICA 150.7/58.1 cm/sec. Dist ICA 84.8/26.3 cm/sec. Dist ICA 98.7/35.6 cm/sec. Rt. ICA/CCA = 0.9. ICA/CCA = 1.7 Prox ECA 150.6/23.3 cm/sec. Prox ECA 208.8/31.0 cm/sec. Rt. Vert. 52.0/14.5 cm/sec. Vert. 60.7/17.1 cm/sec. Right Extracranial There is heterogeneous, smooth atherosclerotic plaque noted in the right common carotid artery. There is heterogeneous, smooth atherosclerotic plaque noted in the right internal carotid artery. HX CEA. There is intimal thickening but no significant atherosclerotic plaque noted in the right external carotid artery. Antegrade flow is noted in the right vertebral artery. Left Extracranial There is heterogeneous, irregular atherosclerotic plaque noted in the left common carotid artery. There is heterogeneous, irregular atherosclerotic plaque noted in the left internal carotid artery. The left internal carotid artery is very tortuous. There is heterogeneous, irregular atherosclerotic plaque noted in the left external carotid artery. Antegrade flow is noted in the left vertebral artery. Procedure This is a Carotid Duplex examination using B-mode, color flow and specral Doppler. Carotid Duplex [id number]. The exam was diagnostic. Exam performed in department. VL/Carotid Duplex Ultrasound Interpretation Summary Mild (<50%) stenosis right extracranial internal carotid. Moderate (50-69%) stenosis left extracranial internal carotid. Patent and antegrade vertebrals bilaterally. Ordering Physician: Anu Fuentes Referring Physician: Bean West Performed By: Alin Lord RVT
== END | disposition home or self-care (01) ==
LOC: CVS 10:52
PROVIDERS: PCP Family Medicine; Referring Provider Physician Assistant; Visit Provider Physician Assistant
DX: Z48.812 Encounter for surgical aftercare following surgery on the circulatory system (principal); I65.21 Occlusion and stenosis of right carotid artery; Z86.73 Personal history of transient ischemic attack (TIA), and cerebral infarction without residual deficits; Z98.890 Other specified postprocedural states
CPT/HCPCS: 93880

== ENCOUNTER → 2024-11-30 | Outpatient (CLI) | payer OTHER, SELFPAY ==
--- NOTE | 2024-11-30 13:00 | VDLE_ITS ---
Reason For Study Reason For Study: Varicose veins, Bilat cramping RIGHT LEFT CFV is compressible, spontaneous, phasic, competent CFV is compressible, spontaneous, phasic, competent, and demonstrates normal augmentation. and demonstrates normal augmentation. FV is compressible, spontaneous, phasic, competent and FV is compressible, spontaneous, phasic, competent demonstrates normal augmentation. and demonstrates normal augmentation. POP V is compressible, spontaneous, phasic, competent POP V is compressible, spontaneous, phasic, competent and demonstrates normal augmentation. and demonstrates normal augmentation. T/P Trunk is compressible. T/P Trunk is compressible. PTV is compressible. PTV is compressible. RT PerV is compressible. LT PerV is compressible. SFJ is INCOMPETENT and measures 0.69 cm. SFJ is INCOMPETENT and measures 0.69 cm. GSV proximal thigh measures 0.67x0.72 cm. GSV proximal thigh measures 0.37x0.36 cm. GSV at knee measures 0.52x0.58 cm. GSV at knee measures 0.31x0.34 cm. GSV INCOMPETENT throughout for greater than 0.5 GSV INCOMPETENT throughout for greater than 0.5 seconds. seconds. Acute superficial vein thrombosis is noted in the GSV. SSV mid calf is competent and measures 0.16x0.19 cm. It is dilated and NONCOMPRESSIBLE. INCOMPETENT sweatband perforator noted 10 cm above medial malleolus. SSV mid calf is competent and measures 0.33x0.32 cm. Procedure This is a venous duplex using B-mode, color flow and spectral Doppler. Exam performed in department. The exam was diagnostic. Patient was scanned in reverse Trendelenburg position during reflux assessment. A preliminary report was called and/or faxed to [facility]. VL/Venous Duplex US - Maurisio Extrem Interpretation Summary Acute superficial vein thrombosis noted in right great saphenous vein in the di stal thigh. Deep veins of the bilateral lower extremities are patent and compressible segme ntally. There is no evidence of bilateral lower extremity deep vein thrombosis. The left great saphenous vein appears pat ent and compressible segmentally. Positive for reflux in the right saphenofemoral junction, great saphenous vein throughout, and distal calf sweatband perforator. Positive for reflux in the left saphenofemoral junction, great saphenous vein t hroughout. Ordering Physician: Bean West Referring Physician: Bean West Performed By: Sarah Snider, RVT
== END | disposition home or self-care (01) ==
LOC: CVS 12:55
PROVIDERS: PCP Family Medicine; Referring Provider Family Medicine; Visit Provider Family Medicine
DX: I83.899 Varicose veins of unspecified lower extremity with other complications (principal); R25.2 Cramp and spasm
CPT/HCPCS: 93970

== ENCOUNTER → 2025-06-19 | Outpatient (CLI) | payer OTHER, SELFPAY ==
[2025-06-19 15:26] LABS: Hematocrit 48.0 % (40-54); Hemoglobin 16.6 g/dL (13.0-16.5); Immature Granulocytes Count 0.010 X10^3/uL (0.0-0.0); Mean Corp Hgb Conc 34.6 g/dL (32-36); Mean Corpuscular Volume 87.4 fL (80-94); Mean Platelet Vol. 9.2 fl (6.2-12.0); NRBC Flagged by Analyzer 0 % (0-5); Platelet Count 239 K/mm3 (150-450); RBC Distribution Width CV 13.2 % (11.6-14.6); RBC Distribution Width SD 42.1 fl (35.1-43.9); Red Blood Count 5.49 M/mm3 (4.6-6.2); White Blood Count 6.9 K/mm3 (4.4-11.0)
[2025-06-19 15:56] LABS: AST(SGOT) 19 U/L (<=37); Alanine Aminotransfer ALT/SGPT 19 U/L (<=46); Albumin, Serum 4.2 g/dL (3.4-4.8); Alkaline Phosphatase 98 U/L (40-129); Anion Gap 11 (5-15); BUN 7 mg/dL (4-19); BUN/Creat Ratio 11.2 RATIO (10-20); Calcium,Total 9.3 mg/dL (7.6-11.0); Carbon Dioxide 23.8 mmol/L (21.0-32.0); Chloride 105 mmol/L (98-108); Cholesterol 220 mg/dL (<=200); Globulin 2.6 g/dL (2.2-4.2); Glucose 115 mg/dL (70-99); Low Density Lipoprotein Calc. 144 mg/dL; PSA,Total - Annual Screen 2.69 ng/mL (0.02-4.00); Potassium 3.8 mmol/L (3.3-5.1); Triglycerides 134 mg/dL; Very Low Density Lipoprotein 27 mg/dL (5-40); cholesterol:hdl ratio screen 4.27
== END | disposition home or self-care (01) ==
LOC: BFHLAB 13:21
PROVIDERS: PCP Family Medicine; Visit Provider Family Medicine
DX: Z12.5 Encounter for screening for malignant neoplasm of prostate (principal); I10 Essential (primary) hypertension; I65.23 Occlusion and stenosis of bilateral carotid arteries
CPT/HCPCS: 36415; 80053; 80061; 84153; 85025; 85610; G0103